=== PATIENT | male | born 1995 | race Caucasian/White ===

== ENCOUNTER 2017-07-20 15:07 | Emergency (ER) | payer OTHER ==
[~2017-07-20] VITALS: Ht 198.1 cm; Wt 87.8 kg
[2017-07-20 15:09] VITALS: TEMP 36.3; Ht 198.1 cm; Wt 87.8 kg
--- NOTE | 2017-07-20 15:33 | EMERGENCY ROOM VISIT NOTE ---
History First contact with patient: 15:19 Chief Complaint: OTHER COMPLAINT Stated Complaint: INFECTION ON LEG, EAR, CHIN History of Present Illness The patient is a 22 year old male who presents to the Emergency Room with complaints of. Wednesday night relapsed and took Bath Salts. Face and chin lesions since Wednesday. 1.5 weeks of lesions on his legs progressing. Takes Subutex every day. Dosed 0.25 today. 4 years. From [age] years old IVDU with heroin, bath salts and speed. Injected in right antebubital fossa. Past Medical/Surgical History Medical Problems: (1) Drug abuse Social History Smoking Status: Current Every Day Smoker Housing Status: lives with family Current/Historical Medications Scheduled Buprenorphine Hcl-Naloxone Hcl (Suboxone 8-2 Mg), 1 TAB PO UD Cephalexin Monohydrate (Keflex), 1 CAP PO BID Clonidine Hcl (Catapres), 1 TAB PO BID Sulfa/Trimethoprim (Bactrim Ds 800MG/160MG), 1 TAB PO BID Physical Exam Vital Signs Date Time Temp Pulse Resp B/P (MAP) Pulse Ox O2 Delivery O2 Flow Rate FiO2 07/20/17 18:10 88 16 118/76 98 07/20/17 16:59 72 16 140/81 98 Room Air 07/20/17 15:09 36.3 98 20 136/78 96 Room Air Medical Decision & Procedures Laboratory Results 07/20/17 15:51 Red Blood Count 4.73, Mean Corpuscular Volume 90.3, Mean Corpuscular Hemoglobin 31.3, Mean Corpuscular Hemoglobin Concent 34.7, Mean Platelet Volume 9.1, Neutrophils (%) (Auto) 44.6, Lymphocytes (%) (Auto) 43.5, Monocytes (%) (Auto) 9.3, Eosinophils (%) (Auto) 2.0, Basophils (%) (Auto) 0.6, Neutrophils # (Auto) 2.25, Lymphocytes # (Auto) 2.19, Monocytes # (Auto) 0.47, Eosinophils # (Auto) 0.10, Basophils # (Auto) 0.03 07/20/17 15:51 Test 07/20/17 15:51 White Blood Count 5.04 K/uL (4.8-10.8) Red Blood Count 4.73 M/uL (4.7-6.1) Hemoglobin 14.8 g/dL (14.0-18.0) Hematocrit 42.7 % (42-52) Mean Corpuscular Volume 90.3 fL (80-100) Mean Corpuscular Hemoglobin 31.3 pg (25-34) Mean Corpuscular Hemoglobin Concent 34.7 g/dl (32-36) Platelet Count 150 K/uL (130-400) Mean Platelet Volume 9.1 fL (7.4-10.4) Neutrophils (%) (Auto) 44.6 % Lymphocytes (%) (Auto) 43.5 % Monocytes (%) (Auto) 9.3 % Eosinophils (%) (Auto) 2.0 % Basophils (%) (Auto) 0.6 % Neutrophils # (Auto) 2.25 K/uL (1.4-6.5) Lymphocytes # (Auto) 2.19 K/uL (1.2-3.4) Monocytes # (Auto) 0.47 K/uL (0.11-0.59) Eosinophils # (Auto) 0.10 K/uL (0-0.5) Basophils # (Auto) 0.03 K/uL (0-0.2) RDW Standard Deviation 43.2 fL (36.4-46.3) RDW Coefficient of Variation 13.1 % (11.5-14.5) Immature Granulocyte % (Auto) 0.0 % Immature Granulocyte # (Auto) 0.00 K/uL (0.00-0.02) Erythrocyte Sedimentation Rate 16 mm/hr (0-14) Anion Gap 5.0 mmol/L (3-11) Est Creatinine Clear Calc Drug Dose 185.3 ml/min Estimated GFR () 148.2 Estimated GFR (Non- 127.9 BUN/Creatinine Ratio 8.8 (10-20) Calcium Level 9.2 mg/dl (8.5-10.1) Total Bilirubin 0.6 mg/dl (0.2-1) Aspartate Amino Transf (AST/SGOT) 22 U/L (15-37) Alanine Aminotransferase (ALT/SGPT) 18 U/L (12-78) Alkaline Phosphatase 80 U/L (45-117) Troponin I < 0.015 ng/ml (0-0.045) Total Protein 8.4 gm/dl (6.4-8.2) Albumin 4.0 gm/dl (3.4-5.0) Globulin 4.4 gm/dl (2.5-4.0) Albumin/Globulin Ratio 0.9 (0.9-2) Medications Administered Medications (Trade) Dose Ordered Sig/Jennifer Route Start Time Stop Time Status Last Admin Dose Admin Trimethoprim/ Sulfamethoxazole (Septra Ds 800/ 160MG Tab) 1 tab NOW ONCE PO 07/20/17 16:15 07/20/17 16:16 DC 07/20/17 16:58 1 TAB Cephalexin Monohydrate (Keflex Cap) 500 mg NOW ONCE PO 07/20/17 16:15 07/20/17 16:16 DC 07/20/17 16:58 500 MG Clonidine HCl (Catapres Tab) 0.1 mg NOW ONCE PO 07/20/17 16:15 07/20/17 16:16 DC 07/20/17 16:15 0.1 MG Medication Reconcilliation Current Medication List: was personally reviewed by me Blood Pressure Screening Patient's blood pressure: Elevated blood pressure Blood pressure disposition: Elevated BP felt to be situational, Referred to PCP Impression Primary Impression: Cellulitis Departure Information Dispostion Home / Self-Care Condition GOOD Prescriptions Clonidine Hcl (CATAPRES) 0.1 Mg Tab 1 TAB PO BID for 5 Days, #10 TAB 1 Refill Prov: Kobi Lee MD 07/20/17 Cephalexin Monohydrate (Keflex) 500 Mg Cap 1 CAP PO BID for 7 Days, #14 CAP Prov: Kobi Lee MD 07/20/17 Sulfa/Trimethoprim (Bactrim Ds 800MG/160MG) Tab 1 TAB PO BID for 7 Days, #6 TAB Prov: Kobi Lee MD 07/20/17 Referrals No Doctor, Assigned (PCP) Patient Instructions My [facility] Additional Instructions You were treated for opiate withdrawal with clonidine in addition to cellulitis. Take this twice a day as necessary for withdrawal symptoms. This medication can reduce your blood pressure and make you more prone to faint. Do not take if driving, operating heavy equipment, feeling dizzy or climbing up ladders. CELLULITIS INSTRUCTIONS: Cephalexin(Keflex) 500mg: Take one pill two times daily for 7 days for your skin infection. All antibiotics can cause diarrhea. If this occurs and you feel worse or it does not resolve in 1-2 days follow up with your doctor or return to the Emergency Department as this could be signs of serious underlying problems. Any medication can cause an allergic reaction, stop the pills immediately and return to the ER for rash, hives, breathing difficulties, or swelling. Trimethoprim-Sulfamethoxazole(Bactrim DS): Take one pill twice daily for 7 days for your skin infection. All antibiotics can cause diarrhea. If this occurs and you feel worse or it does not resolve in 1-2 days follow up with your doctor or return to the Emergency Department as this could be signs of serious underlying problems. Any medication can cause an allergic reaction, stop the pills immediately and return to the ER for rash, hives, breathing difficulties, or swelling. Acetaminophen(Tylenol) may be used for fever or pain. Use 1000mg every eight hours as needed. Avoid using more than 3000mg in a 24 hour period. This is available over the counter. Read all the package inserts or medication information paperwork provided. If you have any questions or concerns call your primary provider, pharmacist or the ER for assistance. Rest and drink plenty of fluids. Continue current medications. Return to the ER for severe pain, persistent fevers, spreading redness, or any worsening of your condition. Follow up with your primary physician within 2-3 days for a recheck of the current condition. Problem Qualifiers Primary Impression: Cellulitis Site of cellulitis: extremity Site of cellulitis of extremity: lower extremity Laterality: right Qualified Codes: L03.115 - Cellulitis of right lower limb
[2017-07-20 16:04] LABS: BASO % 0.6 %; BASO ABS # 0.03 K/uL (0-0.2); COMPLETE YES; HEMATOCRIT 42.7 % (42-52); LYMPH % 43.5 %; LYMPH ABS # 2.19 K/uL (1.2-3.4); MEAN CELL VOLUME 90.3 fL (80-100); MEAN CORPUSCULAR HEMOGLOBIN 31.3 pg (25-34); MEAN CORPUSCULAR HGB CONC 34.7 g/dl (32-36); MEAN PLATELET VOLUME 9.1 fL (7.4-10.4); MONO % 9.3 %; NEUT % 44.6 %; PLATELET COUNT 150 K/uL (130-400); RED BLOOD COUNT 4.73 M/uL (4.7-6.1); WHITE BLOOD COUNT 5.04 K/uL (4.8-10.8)
[2017-07-20] MEDS ORDERED: CEPHALEXIN MONOHYDRATE 250 MG CAP PO ONE (16:15)
[2017-07-20] MEDS ORDERED: CLONIDINE HCL 0.1 MG TAB PO ONE (16:15)
[2017-07-20] MEDS ORDERED: SULFAMETHOXAZOLE/TRIMETHOPRIM DS 800/160MG TAB PO ONE (16:15)
[2017-07-20] MEDS ORDERED: BUPR1SUB23 PO (16:16)
[2017-07-20 16:21] LABS: BUN/CREATININE RATIO 8.8 (10-20); CALCIUM 9.2 mg/dl (8.5-10.1); CREATININE 0.77 mg/dl (0.60-1.40); POTASSIUM 3.5 mmol/L (3.5-5.1)
[2017-07-20 16:24] LABS: ALB/GLOB RATIO 0.9 (0.9-2)
[2017-07-20] MEDS ORDERED: CLON0.1T12 PO (17:53)
[2017-07-20] MEDS ORDERED: CEPH500C PO (17:53)
[2017-07-20] MEDS ORDERED: SULF800T23 PO (17:53)
[2017-07-20 18:10] VITALS: BP 118/76; PULSE 88; O2SAT 98
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
== END 2017-07-20 18:12 | disposition home or self-care (01) ==
LOC: C.EDB 15:08 → C.EDC 18:12
DX: L03.115 Cellulitis of right lower limb (principal); F19.90 Other psychoactive substance use, unspecified, uncomplicated; F17.200 Nicotine dependence, unspecified, uncomplicated; Z82.49 Family history of ischemic heart disease and other diseases of the circulatory system

== ENCOUNTER 2021-09-13 13:05 | Inpatient (IN) ==
--- NOTE | 2021-09-13 13:08 | Emergency Department Note ---
Impression & Plan COVID-19 virus infection, Schizoaffective disorder, History of seizure, Suicidal ideation ED Provider Note NAME: VAN PARKS AGE: 26 SEX: M : 1995 ARRIVES VIA: Ambulance INFORMANT: Patient, ED PROVIDER(S): Usama Sotelo MD Chief Complaint: Weakness, cough, decreased appetite HPI: Patient presents due to concern for increasing weakness productive cough. Patient does have a remote history of asthma but does not have an inhaler. The patient had been trying cough and cold medication but without significant improvement in symptoms. Patient dates his symptoms been fairly constant progressively worse over the last 5 to 6 days. Patient states that he believes he was Covid tested on Wednesday but did not receive a result. Patient denies any fevers or chills. Patient has any chest pains or shortness of breath. Patient is a decreased appetite not eating or drinking as much and has had darker colored urine. Patient denies any nausea or vomiting. Patient denies any diarrhea. Vaccinated for COVID-19. Patient is not vaccinated for the flu. Patient denies any recent surgeries or travel. Patient denies any prior history of DVT or PE and denies any lower extremity swelling. Patient had been on Suboxone in the past for history of opiate abuse but states he has not used in some time ROS: See HPI for pertinent positives and negatives. A total of 10 systems were reviewed and otherwise negative. Past medical history: See below Surgical history: See below Social history: See below Physical Exam: GENERAL: NAD, wearing a mask, non-toxic. EYE EXAM: Normal conjunctiva. PERRL, no anisocoria and EOM's grossly intact w/o pain. NECK: Supple, no nuchal rigidity, no adenopathy, non-tender. No signs of meningismus. LUNGS: Slight expiratory wheezing in the right chest. Normal chest wall mechan ics. HEART: NSR, no MRG. ABDOMEN: Abdomen soft, non-tender, normo-active bowel sounds, no masses, no rebound or guarding. BACK: No CVA TTP. SKIN: No rashes and no bruising. UPPER EXTREMITIES: Upper extremities are grossly normal. LOWER EXTREMITIES: Grossly normal, no edema. Negative Homans' sign bilaterally NEURO EXAM: A&O x3, cranial nerves II-XII grossly intact, normal speech, moves all 4 extremities on command w/o issue. Psych after initial physical exam: Positive SI with auditory hallucinations command in nature, negative HI. Differential diagnoses: Infection, dehydration, metabolic abnormality, hypo/hyperglycemia, electrolyte disturbance, anemia, hypoxia, cardiac sources, intracerebral event, toxicologic, neurologic, as well as other pathologies. Course: Patient was seen and evaluated the bedside. Full history physical exam was performed. EKG interpreted by me Normal sinus rhythm, rate of 67, normal intervals, normal axis, T wave version aVL but not in contiguous leads. Patient does have mild elevation inferiorly and laterally but without any concavity. Likely consistent with benign early repole. Imaging Studies: See Below Cardiac monitoring: An order was placed for continuous cardiac monitoring. The monitor shows a rate of 72 with sinus rhythm. MDM: Patient presents due to concern for weakness fatigue and productive cough. Patient did have remote history of asthma and this was treated as such as the patient did have a little bit of wheezing in the right chest. Blood work was obtained along with an EKG troponin chest x-ray. Chest x-ray is unremarkable with exception of possible foreign body. When asked the patient denies any surgery procedure placing anything under the skin inhaling or swallowing anything. CT of the chest was ordered. Patient is Covid positive and then relayed to case management the patient was having auditory hallucinations that were command in nature telling him to kill himself either by overdosing on heroin, crashing his vehicle or slitting his wrist. Given this concern would be difficult to place him for inpatient psych treatment given his Covid status. I did speak the on-call hospitalist and the patient was admitted by Dr. Gillette to the medicine service with a psychiatric consult. CT of the chest no longer saw any foreign body. This was likely external to the patient. Past Med/Surg History Medical History Asthma Mandible fracture Polysubstance abuse Schizoaffective disorder Seizure h/o seizures - not on meds Surgical History History of mandibular surgery Family History Denies family history of Mental health disorder Social History Smoking Status: Current every day smoker Tobacco Type: Cigarettes Age Started Using Tobacco: 14; packs per day: 1; Second Hand Exposure: Yes; Do You Dip or Chew Tobacco: Yes; Tobacco Cessation Education Requested by Patient: Yes Hx Alcohol Use: Yes Alcohol type: hard liquor Hx Substance Use: Yes Non-Prescribed Medications: Methamphetamines Last Used Substance: Days (ago) Preferred Language: Hungarian Communication Ability: Effective [employer] Required: No Beliefs That Will Affect Care: None marital status: Single Current Living Situation: Alone current occupational status: unemployed other: lives in [place] Feels Safe at Home: Yes Safety Concerns: Feels Safe At This Time Immunizations: Vaccinated for covid, not flu Allergies Allergies Allergy/AdvReac Type Severity Reaction Status Date / Time Fish Containing Products Allergy Intermediate Hives Verified 09/13/21 17:57 hydroxyzine Allergy Intermediate ITCH Verified 09/13/21 17:57 Penicillins Allergy Intermediate Hives Verified 09/13/21 17:57 walnut Allergy Intermediate trouble Verified 09/13/21 17:57 breathing, hives Home Meds Home Medications Medication Instructions Recorded Confirmed No Known Home Medications 09/13/21 09/13/21 Results & Data (ED) Vital Signs Vital Signs - 24 hr 09/13/21 13:48 Temperature 36.7 C Temperature Source Oral Pulse Rate 74 Respiratory Rate 21 Respiratory Effort / Characteristics Non-Labored Blood Pressure 116/70 Blood Pressure Mean 85 Pulse Oximetry 100 Oxygen Delivery Method Room Air Sepsis Recent Fever Within 48 Hours No Sepsis New/Unexplained Change in Mental Status N/A Sepsis Action Taken by Nursing No Action Required Home Medications Current Medication List: was personally reviewed by me Laboratory Data Attestation: I reviewed the patient's lab results. Result diagrams: 09/13/21 14:16 09/13/21 14:16 Lab Results 09/13/21 09/13/21 09/13/21 Range/Units 13:44 13:44 14:16 WBC 5.61 (4.8-10.8) K/uL RBC 4.49 L (4.7-6.1) M/uL Hgb 14.1 (14.0-18.0) g/dL Hct 42.1 (42-52) % MCV 93.8 (80-100) fL MCH 31.4 (25-34) pg MCHC 33.5 (32-36) g/dL RDW Std Deviation 44.2 (36.4-46.3) fL RDW Coeff of Prudence 12.8 (11.5-14.5) % Plt Count 155 (130-400) K/uL MPV 9.6 (7.4-10.4) fL Immature Gran % (Auto) 0.2 % Neut % (Auto) 51.8 % Lymph % (Auto) 39.6 % [place] % (Auto) 5.9 % Eos % (Auto) 2.1 % Baso % (Auto) 0.4 % Neut # (Auto) 2.91 (1.4-6.5) K/uL Lymph # (Auto) 2.22 (1.2-3.4) K/uL [place] # (Auto) 0.33 (0.11-0.59) K/uL Eos # (Auto) 0.12 (0-0.5) K/uL Baso # (Auto) 0.02 (0-0.2) K/uL Immature Gran # (Auto) 0.01 (0.00-0.02) K/uL ESR (0-15) mm/hr Sodium (136-145) mmol/L Potassium (3.5-5.1) mmol/L Chloride (98-107) mmol/L Carbon Dioxide (21-32) mmol/L Anion Gap (3-11) BUN (6-23) mg/dl Creatinine (0.6-1.4) mg/dl Est Cr Clr Drug Dosing ml/min Est GFR ( Amer) ml/min Est GFR (Non-Af Amer) ml/min BUN/Creatinine Ratio (10-20) Glucose (70-99(Fasting)) mg/dl Calcium (8.5-10.1) mg/dl Magnesium (1.7-2.4) mg/dl Total Creatine Kinase (30-223) U/L Troponin I (0-0.04) ng/ml C-Reactive Protein (0-0.5) mg/dl Salicylates (3.0-30) mg/dl Urine Opiates Screen (Neg) Ur Methadone, Qual (Neg) Acetaminophen (10-30) ug/ml Urine Barbiturates (Neg) Ur Phencyclidine (PCP) (Neg) U Amphetamin/Meth Scrn (Neg) MDMA (Ecstasy) Screen (Neg) U Benzodiazepines Scrn (Neg) Ur Cocaine Metabolite (Neg) U Marijuana (THC) Screen (Neg) Ethyl Alcohol mg/dL (<10.0) mg/dl Influ A Molecular Assay Negative (Negative) Influ B Molecular Assay Negative (Negative) SARS-CoV-2, RNA, NAAT POSITIVE A* (NEGATIVE) 09/13/21 09/13/21 09/13/21 Range/Units 14:16 14:16 14:16 WBC (4.8-10.8) K/uL RBC (4.7-6.1) M/uL Hgb (14.0-18.0) g/dL Hct (42-52) % MCV (80-100) fL MCH (25-34) pg MCHC (32-36) g/dL RDW Std Deviation (36.4-46.3) fL RDW Coeff of Prudence (11.5-14.5) % Plt Count (130-400) K/uL MPV (7.4-10.4) fL Immature Gran % (Auto) % Neut % (Auto) % Lymph % (Auto) % [place] % (Auto) % Eos % (Auto) % Baso % (Auto) % Neut # (Auto) (1.4-6.5) K/uL Lymph # (Auto) (1.2-3.4) K/uL [place] # (Auto) (0.11-0.59) K/uL Eos # (Auto) (0-0.5) K/uL Baso # (Auto) (0-0.2) K/uL Immature Gran # (Auto) (0.00-0.02) K/uL ESR 14 (0-15) mm/hr Sodium 142 (136-145) mmol/L Potassium 4.2 (3.5-5.1) mmol/L Chloride 108 H (98-107) mmol/L Carbon Dioxide 27 (21-32) mmol/L Anion Gap 7 (3-11) BUN 7 (6-23) mg/dl Creatinine 0.55 L (0.6-1.4) mg/dl Est Cr Clr Drug Dosing 255.7 ml/min Est GFR ( Amer) > 150.0 ml/min Est GFR (Non-Af Amer) 142.8 ml/min BUN/Creatinine Ratio 12.7 (10-20) Glucose 102 H (70-99(Fasting)) mg/dl Calcium 8.5 (8.5-10.1) mg/dl Magnesium 1.9 (1.7-2.4) mg/dl Total Creatine Kinase 58 (30-223) U/L Troponin I < 0.03 (0-0.04) ng/ml C-Reactive Protein < 0.50 (0-0.5) mg/dl Salicylates (3.0-30) mg/dl Urine Opiates Screen (Neg) Ur Methadone, Qual (Neg) Acetaminophen (10-30) ug/ml Urine Barbiturates (Neg) Ur Phencyclidine (PCP) (Neg) U Amphetamin/Meth Scrn (Neg) MDMA (Ecstasy) Screen (Neg) U Benzodiazepines Scrn (Neg) Ur Cocaine Metabolite (Neg) U Marijuana (THC) Screen (Neg) Ethyl Alcohol mg/dL (<10.0) mg/dl Influ A Molecular Assay (Negative) Influ B Molecular Assay (Negative) SARS-CoV-2, RNA, NAAT (NEGATIVE) 09/13/21 09/13/21 09/13/21 Range/Units 14:58 15:18 15:18 WBC (4.8-10.8) K/uL RBC (4.7-6.1) M/uL Hgb (14.0-18.0) g/dL Hct (42-52) % MCV (80-100) fL MCH (25-34) pg MCHC (32-36) g/dL RDW Std Deviation (36.4-46.3) fL RDW Coeff of Prudence (11.5-14.5) % Plt Count (130-400) K/uL MPV (7.4-10.4) fL Immature Gran % (Auto) % Neut % (Auto) % Lymph % (Auto) % [place] % (Auto) % Eos % (Auto) % Baso % (Auto) % Neut # (Auto) (1.4-6.5) K/uL Lymph # (Auto) (1.2-3.4) K/uL [place] # (Auto) (0.11-0.59) K/uL Eos # (Auto) (0-0.5) K/uL Baso # (Auto) (0-0.2) K/uL Immature Gran # (Auto) (0.00-0.02) K/uL ESR (0-15) mm/hr Sodium (136-145) mmol/L Potassium (3.5-5.1) mmol/L Chloride (98-107) mmol/L Carbon Dioxide (21-32) mmol/L Anion Gap (3-11) BUN (6-23) mg/dl Creatinine (0.6-1.4) mg/dl Est Cr Clr Drug Dosing ml/min Est GFR ( Amer) ml/min Est GFR (Non-Af Amer) ml/min BUN/Creatinine Ratio (10-20) Glucose (70-99(Fasting)) mg/dl Calcium (8.5-10.1) mg/dl Magnesium (1.7-2.4) mg/dl Total Creatine Kinase (30-223) U/L Troponin I (0-0.04) ng/ml C-Reactive Protein (0-0.5) mg/dl Salicylates < 3.0 L (3.0-30) mg/dl Urine Opiates Screen Neg (Neg) Ur Methadone, Qual Neg (Neg) Acetaminophen 8 L (10-30) ug/ml Urine Barbiturates Neg (Neg) Ur Phencyclidine (PCP) Neg (Neg) U Amphetamin/Meth Scrn Pos H (Neg) MDMA (Ecstasy) Screen Neg (Neg) U Benzodiazepines Scrn Neg (Neg) Ur Cocaine Metabolite Neg (Neg) U Marijuana (THC) Screen Pos H (Neg) Ethyl Alcohol mg/dL < 10.0 (<10.0) mg/dl Influ A Molecular Assay (Negative) Influ B Molecular Assay (Negative) SARS-CoV-2, RNA, NAAT (NEGATIVE) Administered Medications Discontinued Medications Acetaminophen (Acetaminophen 500 Mg Tab) 1,000 mg PO NOW STA Stop: 09/13/21 13:13 Last Admin: 09/13/21 13:36 Dose: 1,000 mg Documented by: [id number] Albuterol (Albuterol Hfa 8 Gm Inhaler) 2 puffs INH NOW ONE Stop: 09/13/21 13:13 Last Admin: 09/13/21 13:37 Dose: 2 puffs Documented by: [id number] Sodium Chloride (Nss 1000ml) 1,000 mls @ 999 mls/hr IV .Q1H1M LILIA Stop: 09/13/21 14:15 Last Infusion: 09/13/21 14:40 Dose: 0 mls/hr Documented by: [id number] Admin: 09/13/21 13:39 Dose: 999 mls/hr Documented by: [id number] Ioversol (Optiray 320 100ml) 94 ml IV ONCE ONE Stop: 09/13/21 16:49 Last Admin: 09/13/21 16:48 Dose: 94 ml Documented by: [id number] Ketorolac Tromethamine (Ketorolac Tromethamine 15 Mg/Ml Vial) 10 mg IV NOW ONE Stop: 09/13/21 13:13 Last Admin: 09/13/21 13:41 Dose: 10 mg Documented by: [id number] Methylprednisolone (Methylprednisolone 125 Mg/2 Ml Vial) 60 mg IV NOW STA Stop: 09/13/21 13:13 Last Admin: 09/13/21 13:40 Dose: 60 mg Documented by: [id number] Ondansetron HCl (Ondansetron Inj 2 Mg/Ml 2 Ml Vial) 4 mg IV NOW STA Stop: 09/13/21 13:13 Last Admin: 09/13/21 13:39 Dose: 4 mg Documented by: [id number] Imaging Data Radiologist's Impression: Chest X-Ray 09/13/21 13:12 SINGLE VIEW CHEST CLINICAL HISTORY: Generalized weakness. FINDINGS: 2 AP, portable, upright chest radiographs are obtained. No prior studies are available for comparison at the time of dictation. The cardiomediastinal silhouette is unremarkable. The lungs and pleural spaces are clear. No pneumothorax is seen. The bony thorax is grossly intact. An indeterminant curvilinear metallic density/foreign body projects over the right mediastinum. IMPRESSION: 1. No active disease in the chest. 2. An indeterminant curvilinear metallic density/foreign body projects over the right mediastinum. ACT 112: Negative or not required by law. Electronically signed by: Femi Emmanuel M.D. 09/13/2021 1:[address] 09/13/21 15:57 CT SCAN OF THE CHEST WITH IV CONTRAST CLINICAL HISTORY: Covid. Metallic foreign body. COMPARISON STUDY: Chest x-ray dated 09/13/2021. TECHNIQUE: Following the IV administration of 94 cc of Optiray 320, CT scan of the thorax was performed from the thoracic inlet to the upper abdomen. Images are reviewed in the axial, sagittal, and coronal planes. IV contrast was administered without complication. A dose lowering technique was utilized adhering to the principles of ALARA. CT DOSE: 239.75 mGy.cm FINDINGS: Thyroid: Imaged portions of the thyroid gland are normal in size and attenuation. Thoracic aorta: The thoracic aorta is normal in caliber and demonstrates standard 3-vessel arch anatomy. No dissection is seen. Pulmonary vasculature: The pulmonary trunk is normal in caliber. There are no filling defects identified in the central pulmonary vessels to indicate pulmonary embolus. Note that this examination was not protocoled for evaluation of the pulmonary arteries. Heart: The heart is normal in size and without pericardial effusion. Lungs and pleural spaces: The lungs and pleural spaces are clear. The trachea and central airways are patent. Mediastinum: There is no mediastinal lymphadenopathy. [place] Delia: Clear. Axillae: There is no axillary lymphadenopathy. Upper abdomen: Partially visualized upper abdominal viscera is within normal limits. Skeletal structures: No lytic or blastic bony lesions are seen. IMPRESSION: 1. The lungs are clear. 2. The curvilinear metallic density seen by chest x-ray was not visualized on CT and may have been external to the patient. Clinical correlation will be essential. If further workup is desired then PA and lateral chest radiographs could be considered. ACT 112: Negative or not required by law. Electronically signed by: Femi Emmanuel M.D. 09/13/2021 5:02 PM Discharge Plan Visit Data Chief Complaint: Illness Stated Complaint: illness, possible covid ED Provider: Usama Sotelo Discharge Problem: COVID-19 virus infection, Schizoaffective disorder, History of seizure, Suicidal ideation
[2021-09-13] MEDS ORDERED: ALBUTEROL HFA 8 GM INHALER INH ONE (13:12)
[2021-09-13] MEDS ORDERED: ONDANSETRON INJ 2 MG/ML 2 ML VIAL IV STA (13:12)
[2021-09-13] MEDS ORDERED: methylPREDNISolone 125 MG/2 ML VIAL IV STA (13:12)
[2021-09-13] MEDS ORDERED: ACETAMINOPHEN 500 MG TAB PO STA (13:12)
[2021-09-13] MEDS ORDERED: KETOROLAC TROMETHAMINE 15 MG/ML VIAL IV ONE (13:12)
[2021-09-13] MEDS ORDERED: SODIUM CHLORIDE 0.9% 1000ML 1,000 ML IV SCH (13:15)
--- NOTE | 2021-09-13 13:54 | XRay Report ---
SINGLE VIEW CHEST CLINICAL HISTORY: Generalized weakness. FINDINGS: 2 AP, portable, upright chest radiographs are obtained. No prior studies are available for comparison at the time of dictation. The cardiomediastinal silhouette is unremarkable. The lungs and pleural spaces are clear. No pneumothorax is seen. The bony thorax is grossly intact. An indetermina nt curvilinear metallic density/foreign body projects over the right mediastinum. IMPRESSION: 1. No active disease in the chest. 2. An indeterminant curvilinear metallic density/foreign body projects over the right mediastinum. ACT 112: Negative or not required by law. Electronically signed by: Femi Emmanuel M.D. 09/13/2021 1:53 PM
[2021-09-13 14:14] LABS: Influenza A virus by PCR Negative (Negative); Influenza B virus by PCR Negative (Negative)
[2021-09-13 14:26] LABS: Basophils # (auto) 0.02 K/uL (0-0.2); Basophils % (auto) 0.4 %; Eosinophils # (auto) 0.12 K/uL (0-0.5); Eosinophils % (auto) 2.1 %; Hematocrit (blood only) 42.1 % (42-52); Hemoglobin 14.1 g/dL (14.0-18.0); Immature Granulocytes # (auto) 0.01 K/uL (0.00-0.02); Immature Granulocytes % (auto) 0.2 %; Lymphocytes # (auto) 2.22 K/uL (1.2-3.4); Lymphocytes % (auto) 39.6 %; Mean Corpuscular Hemoglobin 31.4 pg (25-34); Mean Corpuscular Hgb Conc 33.5 g/dL (32-36); Mean Corpuscular Volume 93.8 fL (80-100); Mean Platelet Volume 9.6 fL (7.4-10.4); Monocytes # (auto) 0.33 K/uL (0.11-0.59); Monocytes % (auto) 5.9 %; Neutrophils # (auto) 2.91 K/uL (1.4-6.5); Neutrophils % (auto) 51.8 %; Platelet Count 155 K/uL (130-400); RDW Coefficient of Variation 12.8 % (11.5-14.5); RDW Standard Deviation 44.2 fL (36.4-46.3); Red Blood Count 4.49 M/uL (4.7-6.1); White Blood Count 5.61 K/uL (4.8-10.8)
[2021-09-13 15:01] LABS: Troponin I < 0.03 ng/ml (0-0.04)
[2021-09-13 15:22] LABS: Anion Gap 7 (3-11); BUN Creatinine Ratio 12.7 (10-20); Blood Urea Nitrogen 7 mg/dl (6-23); Calcium 8.5 mg/dl (8.5-10.1); Carbon Dioxide 27 mmol/L (21-32); Chloride 108 mmol/L (98-107); Creatinine Clr Calc Pharmacy 255.7 ml/min; Est GFR (African American) > 150.0 ml/min; Est GFR (Non-African American) 142.8 ml/min; Glucose 102 mg/dl (70-99(Fasting)); Potassium 4.2 mmol/L (3.5-5.1); Sodium 142 mmol/L (136-145)
[2021-09-13 15:58] LABS: Acetaminophen 8 ug/ml (10-30); Salicylate < 3.0 mg/dl (3.0-30)
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
[2021-09-13 16:17] LABS: Amphetamines+Metham, Urine Pos (Neg); Barbiturates, Urine Neg (Neg); Benzodiazepine, Urine Neg (Neg); Cocaine, Urine Neg (Neg); MDMA (Ecstacy), Urine Neg (Neg); Methadone, Urine Neg (Neg); Opiate, Urine Neg (Neg); Phencyclidine, Urine Neg (Neg)
[2021-09-13] MEDS ORDERED: OPTIRAY 320 100ml IV ONE (16:48)
--- NOTE | 2021-09-13 17:04 | CT Scan Report ---
CT SCAN OF THE CHEST WITH IV CONTRAST CLINICAL HISTORY: Covid. Metallic foreign body. COMPARISON STUDY: Chest x-ray dated 09/13/2021. TECHNIQUE: Following the IV administration of 94 cc of Optiray 320, CT scan of the thorax was perform ed from the thoracic inlet to the upper abdomen. Images are reviewed in the axial, sagittal, and calixto nal planes. IV contrast was administered without complication. A dose lowering technique was utilize d adhering to the principles of ALARA. CT DOSE: 239.75 mGy.cm FINDINGS: Thyroid: Imaged portions of the thyroid gland are normal in size and attenuation. Thoracic aorta: The thoracic aorta is normal in caliber and demonstrates standard 3-vessel arch anato my. No dissection is seen. Pulmonary vasculature: The pulmonary trunk is normal in caliber. There are no filling defects identif ied in the central pulmonary vessels to indicate pulmonary embolus. Note that this examination was no t protocoled for evaluation of the pulmonary arteries. Heart: The heart is normal in size and without pericardial effusion. Lungs and pleural spaces: The lungs and pleural spaces are clear. The trachea and central airways are patent. Mediastinum: There is no mediastinal lymphadenopathy. Alma Delia: Clear. Axillae: There is no axillary lymphadenopathy. Upper abdomen: Partially visualized upper abdominal viscera is within normal limits. Skeletal structures: No lytic or blastic bony lesions are seen. IMPRESSION: 1. The lungs are clear. 2. The curvilinear metallic density seen by chest x-ray was not visualized on CT and may have been ex ternal to the patient. Clinical correlation will be essential. If further workup is desired then PA a nd lateral chest radiographs could be considered. ACT 112: Negative or not required by law. Electronically signed by: Femi Emmanuel M.D. 09/13/2021 5:02 PM
[2021-09-13 17:28] LABS: C Reactive Protein < 0.50 mg/dl (0-0.5); Creatine Kinase 58 U/L (30-223); Magnesium 1.9 mg/dl (1.7-2.4)
[2021-09-13] MEDS ORDERED: ALBUTEROL HFA 8 GM INHALER INH PRN (18:24)
[2021-09-13] MEDS ORDERED: ONDANSETRON INJ 2 MG/ML 2 ML VIAL IV PRN (18:24)
[2021-09-13] MEDS ORDERED: ACETAMINOPHEN 325 MG TAB PO PRN (18:24)
[2021-09-13] MEDS: SODIUM CHLORIDE 0.9% 1000ML 1,000 ML IV SCH (18:43)
[2021-09-13] MEDS: guaiFENesin 600 MG TABCR PO SCH (19:47)
[2021-09-13] MEDS: THIAMINE HCL 100 MG TAB PO SCH (19:48)
[2021-09-13] MEDS: NICOTINE 21 MG/24 HR TDSY TD SCH (19:48)
[2021-09-13] MEDS: FOLIC ACID 1 MG TAB PO SCH (19:48)
[2021-09-13] MEDS ORDERED: OLANZapine 10 MG TAB PO PRN (21:50)
[2021-09-14] MEDS: SODIUM CHLORIDE 0.9% 1000ML 1,000 ML IV SCH (04:42)
[2021-09-14 07:08] LABS: Anion Gap 5 (3-11); BUN Creatinine Ratio 19.1 (10-20); Blood Urea Nitrogen 9 mg/dl (6-23); Calcium 8.6 mg/dl (8.5-10.1); Carbon Dioxide 26 mmol/L (21-32); Chloride 110 mmol/L (98-107); Creatinine Clr Calc Pharmacy 297.9 ml/min; Est GFR (African American) > 150.0 ml/min; Est GFR (Non-African American) > 150.0 ml/min; Glucose 99 mg/dl (70-99(Fasting)); Iron 134 mcg/dl (35-175); Sodium 141 mmol/L (136-145); Total Iron Binding Cap Calc 259 mcg/dl (250-450); Transferrin (FE) Percent Satur 52 % (20-50); Unsaturated Iron Binding Cap 125 mcg/dl (155-355)
[2021-09-14 07:17] LABS: Thyroid Stimulating Hormone 0.087 uIu/ml (0.300-4.500)
[2021-09-14 07:21] LABS: Ferritin 148.3 ng/ml (8-388)
[2021-09-14 07:27] LABS: Folate (Folic Acid) 11.24 ng/ml (>5.38)
[2021-09-14 07:49] LABS: T4 Free Thyroxine 0.83 ng/dl (0.61-1.60)
[2021-09-14] MEDS: THIAMINE HCL 100 MG TAB PO SCH ×2 (07:49→20:13)
[2021-09-14] MEDS: guaiFENesin 600 MG TABCR PO SCH ×2 (07:50→20:07)
[2021-09-14] MEDS: NICOTINE 21 MG/24 HR TDSY TD SCH (07:50)
[2021-09-14] MEDS: CEROVITE ADV FORMULA TAB PO SCH (07:50)
[2021-09-14] MEDS: FOLIC ACID 1 MG TAB PO SCH (07:50)
[2021-09-14] MEDS: ENOXAPARIN INJ 40 MG/0.4 ML SYR SQ SCH (07:50)
--- NOTE | 2021-09-14 09:18 | Electrocardiogram Report ---
Test Reason : Blood Pressure : / mmHG Vent. Rate : 067 BPM Atrial Rate : 067 BPM P-R Int : 192 ms QRS Dur : 092 ms QT Int : 388 ms P-R-T Axes : 073 078 072 degrees QTc Int : 409 ms Normal sinus rhythm Diffuse Minor ST elevation, most consistent with repolarization variant Normal ECG When compared with ECG of 20-JUL-2017 17:07, No significant change was found Confirmed by Mauri Wilson ([id number]) on 09/14/2021 9:18:34 AM Referred By: Confirmed By:Mauri Wilson
--- NOTE | 2021-09-14 09:26 | Psychiatric Consultation ---
Date of Consultation September 14, 2021 Impression / Recommendations Impression This is a 26 yo with a history of schizoaffective disorder, polysubstance use admitted medically. Diagnostically consistent with unspecified depression-likely combination of MDD and methamphetamine and opioid withdrawal as well as unpsceified psychosis-likely combination of schizoaffective disorder with recent medication non-adherence as well as substance-induced from methampetamine with visual hallucinations and methamphetamine and opioid use disorder. At this point acute risk of harm to self is high given recent attempts, command AH, chronic SI with acute worsening, substance use, limited supports and no local providers. Treating his psychosis and mood symptoms and then substance use treatment will be the most significant modifiable risk factors to reduce acute and chronic risk. He meets criteria for inpatient psychiatric treatment at this time but has tested positive for COVID+ so there are unfortunately no facilities able to accommodate him currently so he will remain on the medical floor with close psychiatric consultation and care. He is also presenting with medical symptoms however I suspect some of his weight loss and fatigue is related to his heavy use and withdrawal from methamphetamine in addition to COVID. Reviewed with him medication options. He consents to starting risperidone. Discussed risks/benefits/alternatives including but not limited to metabolic, movement (TD) and prolactin changes side effects. He is not interested in any antidepressant medications at this time except Wellbutrin, will confirm dose with provider's office in [place]. For now will hold off on restarting suboxone since he has no local prescribers and has been off for multiple days and until we can confirm prior dose with [place] provider. (1) Schizoaffective disorder: Schizoaffective disorder type: unspecified Qualified Code(s): F25.9 - Schizoaffective disorder, unspecified (2) Methamphetamine use disorder, severe: (3) Opioid use disorder, moderate, dependence: (4) Suicidal ideation: (5) Psychosis: (6) Depression: 09/14/21: -Continue 1-on-1 for safety -Patient may not leave AMA without psych clearance, would meet 302 critera if he asks to leave due to high risk of harm to self -Psychiatric liason will provide resources on local mental health services and substance use services and will refer to residential tx vs dual diagnosis once psychiatrically and medically stable -Start risperidone 0.5 mg qAM & 1.5 mg qhs -Fasting labs in AM (lipid panel and glucose) -Monitor withdrawal using COWS (Clinical Opiate Withdrawal Scale). Clonidine day 1-4: 0.1 mg q6h prn up to 1.2 mg/day (hold for SBP<100), day 5 complete and re duce dose by 0.2 mg per day until discontinued OR can use clonidine patch 0.2 mg per day. Symptomatic treatment: dicyclomine 20mg q6h prn abdominal cramps, loperamide 2mg q6h prn diarrhea, ibuprofen 600 mg q6h prn pain, hydroxyzine 50mg q6h prn anxiety, mirtazapine 15mg qhs prn for insomnia Risk Factors Assessment Male: Yes : Yes Do You Have Access To A Gun?: No Mental Health Diagnoses: Yes Substance Use Disorders: Yes Previous Attempt: Yes Previous Attempt; Didn't Tell Anyone: Yes Hopelessness: Yes Smoker: Yes Protective Factors Assessment Employed: No Stable Relationships: Yes Supportive Family: Yes Telehealth Telehealth Options: 2-way audio and video For the duration of the visit, provider was performing the assessment from: The same facility as the patient After establishing a telemedicine visit, patient was: Patient was verified with two unique identifiers, Patient/authorized rep acknowledged consent and unders tanding and Gave permission to continue telehealth session Total Time Spent (minutes): 35 Psych History Identifying Data 26 yo man with history of schizoaffective disorder, polysubstance use disorder (methamphetamine, cannabis, opioid) admitted medically for COVID, weight loss, and command AH with SI and plan. Chief Complaint "The voices get worse and then I use substances". History of Present Illness David presented to the hospital via ambulance with symptoms of COVID and then revealed worsening command AH telling him he was worthless and instructing him to kill himself via overdose on heroin, crashing his car or slitting his wrists. He has been off his psychiatric medications for about 2 months but previously was prescribed wellbutrin and seroquel. He states he's also been taking suboxone 8mg BID prescribed by a DR. Sargent in [facility] and that he has been withdrawing from suboxone for the last 3-4 days. Today he endorses some improvement in the auditory hallucinations and denies VH which he attributes to "I've been sleeping all day so haven't heard much". He endorses chronic SI which worsened recently due to "family issues" of his sister struggling with substance use issues like he does. States that a few days ago he had a suicide attempt via injecting himself with "4-5 grams of meth" which he thought would kill him "I hoped it would". Recently for the last few months he's been using meth "a lot" via smoking, IV and sniffing as well as heroin via smoking and sniffing though he is unable to estimate quantity of use stating "whatever I can get". Denies any recent overdoses or requiring narcan. He was recently staying with his sister in the [place] area but also sometimes lives with his father in [place] or his mother in [place]. He is motivated to recieve treatment to help with his mood and wants to return to residential substance use treatment once he's recovered from COVID and feels better. Psychiatric ROS notable for long hx of AH and VH, endorses hx of 4-5 of decrea sed sleep but denies any other symptoms of callum during that day (has never been hospitalized for callum and denies any hx of LI or Depakote trials), hx multiple psychiatric med trials in past. Endorses anxiety related to withdrawal symptoms. Endorses depression with PHQ-9 score of 19 and q9 with score of 3. Past Psychiatric History Previous Psych History: previously saw a psychiatrist in [place] who was prescribing suboxone, Wellbutrin and seroquel Outpatient Services: none ?Dr. Fay in [place] Previous Psych Admissions: once ~1 year ago in [place] for "paranoia" Do You Have Access To A Gun?: No History of Previous Suicide Attempt: Yes (few days ago via IV meth ) Past Medication Trials: wellbutrin, seroquel, suboxone, sertraline, fluoxetine, lexapro, zyprexa, haldol Additional Notes: hx seizures but denies any seziures while taking WEllbutrin Allergies Allergy/AdvReac Type Severity Reaction Status Date / Time Fish Containing Products Allergy Intermediate Hives Verified 09/13/21 17:57 hydroxyzine Allergy Intermediate ITCH Verified 09/13/21 17:57 Penicillins Allergy Intermediate Hives Verified 09/13/21 17:57 walnut Allergy Intermediate trouble Verified 09/13/21 17:57 breathing, hives Home Medications Medication Instructions Recorded Confirmed Type No Known Home Medications 09/13/21 09/13/21 History Family History extensive substance use, father and brother attempted suicide, states father and brother have BPAD Substance Abuse History hx methamphetamine use, marijuana and opioid. Denies alcohol use. Has DUI charges from last year related to driving while intoxicated with cannabis Personal History Childhood: see HPI Employment Status: Unemployed Beliefs That Will Affect Care: None History of Legal Problems: hx incarceration in 2018 in [place] for felony forgery Psychological Trauma History Comment: hx trauma as child Patient History Medical History Asthma Mandible fracture Polysubstance abuse Schizoaffective disorder Seizure h/o seizures - not on meds Surgical History History of mandibular surgery Family History Denies family history of Mental health disorder Social History Smoking Status: Current every day smoker Tobacco Type: Cigarettes Age Started Using Tobacco: 14; packs per day: 1; Second Hand Exposure: Yes; Do You Dip or Chew Tobacco: Yes; Tobacco Cessation Education Requested by Patient: Yes Hx Alcohol Use: Yes Alcohol type: hard liquor Hx Substance Use: Yes Non-Prescribed Medications: Methamphetamines Last Used Substance: Days (ago) Preferred Language: Divehi Communication Ability: Effective Office Support Assistant Required: No Beliefs That Will Affect Care: None marital status: Single Current Living Situation: Alone current occupational status: unemployed other: lives in [place] Feels Safe at Home: Yes Safety Concerns: Feels Safe At This Time Assistive Devices: None Physical Exam Psychiatric: Orientation: alert Apperance: appropriately dressed and appropriately groomed Eye Contact: + fair eye contact Motor Behavior: no abnormal motor movements Speech: normal rate/rhythm/volume of speech Affect: + depressed affect Mood: + depressed mood and + anxious mood Thought Process: + concrete thought process Thought Content: reality based w ithout delusions Suicidal Thoughts: denies suicidal plan and denies suicidal intent; + reports suicidal thoughts (intermittent chronic SI that has worsened ) Homicidal Thoughts: denies homicidal thoughts Hallucinations: + auditory hallucinations; no visual hallucinations, no tactile hallucinations and no gustatory hallucinations Cognition: recent memory grossly intact, remote memory grossly intact, attention grossly intact and language grossly intact Estimated Intelligence: consistent with education level Insight: + limited insight Judgement: + limited judgement Vital Signs (Past 24 Hours): Last Vital Signs Temp 36.3 C L 09/14/21 07:35 Pulse 65 09/14/21 07:35 Resp 18 09/14/21 07:35 BP 122/77 09/14/21 07:35 Pulse Ox 98 09/14/21 07:35 Review of Systems All systems reviewed & are unremarkable except as noted in HPI & below (endorses fatigue, cough, low energy, recent weight loss) Results & Data (PSY) Laboratory Results Vitamin B12, folate nml; TSH low, free T4 nml; UDS: + low acetaminophen, pos amph/meth (has been off Wellbutrin for ~2 months), pos THC Diagnostic Findings QTc wnl Medications Administered Acetaminophen (Acetaminophen 325 Mg Tab) 650 mg PO Q4H PRN PRN Reason: Pain or Fever Stop: 10/13/21 18:23 Last Admin: 09/14/21 08:37 Dose: 650 mg Documented by: [id number] Enoxaparin Sodium (Enoxaparin Inj 40 Mg/0.4 Ml Syr) 40 mg SQ Q24H LILIA Stop: 10/14/21 08:59 Last Admin: 09/14/21 07:50 Dose: 40 mg Documented by: [id number] Folic Acid (Folic Acid 1 Mg Tab) 1 mg PO QAM LILIA Stop: 10/13/21 18:23 Last Admin: 09/14/21 07:50 Dose: 1 mg Documented by: [id number] Admin: 09/13/21 19:48 Dose: 1 mg Documented by: [id number] Guaifenesin (Guaifenesin 600 Mg Tabcr) 1,200 mg PO Q12 LILIA Stop: 10/13/21 20:59 Last Admin: 09/14/21 07:50 Dose: 1,200 mg Documented by: [id number] Admin: 09/13/21 19:47 Dose: 1,200 mg Documented by: [id number] Sodium Chloride (Nss 1000ml) 1,000 mls @ 100 mls/hr IV .Q10H LILIA Stop: 09/14/21 12:59 Last Admin: 09/14/21 04:42 Dose: 100 mls/hr Documented by: [id number] Infusion: 09/14/21 03:35 Dose: 100 mls/hr Documented by: [id number] Admin: 09/13/21 18:43 Dose: 100 mls/hr Documented by: [id number] Miscellaneous (Remove Nicoderm Patch) 1 ea N/A [id number] [facility] Stop: 10/14/21 08:58 Last Admin: 09/14/21 07:50 Dose: Not Given Documented by: [id number] Multivitamins/Minerals (Cerovite Adv Formula Tab) 1 tab PO QAM [facility] Stop: 10/14/21 08:59 Last Admin: 09/14/21 07:50 Dose: 1 tab Documented by: [id number] Nicotine (Nicotine 21 Mg/24 Hr Tdsy) 21 mg TD QAM [facility] Stop: 10/13/21 18:23 Last Admin: 09/14/21 07:50 Dose: Not Given Documented by: [id number] Admin: 09/13/21 19:48 Dose: Not Given Documented by: [id number] Ondansetron HCl (Ondansetron Inj 2 Mg/Ml 2 Ml Vial) 4 mg IV Q6H PRN PRN Reason: Nausea Stop: 10/13/21 18:23 Last Admin: 09/14/21 07:49 Dose: 4 mg Documented by: [id number] Thiamine HCl (Thiamine Hcl 100 Mg Tab) 200 mg PO BID [facility] Stop: 10/13/21 20:59 Last Admin: 09/14/21 07:49 Dose: 200 mg Documented by: [id number] Admin: 09/13/21 19:48 Dose: 200 mg Documented by: [id number] Coding Level of Care Code 26993 Inpt Consult Level 4 Diagnoses Schizoaffective disorder F25.9 Schizoaffective disorder type: unspecified Methamphetamine use disorder, severe F15.20 Opioid use disorder, moderate, dependence F11.20 Suicidal ideation R45.851 Psychosis F29 Depression F32.A
[2021-09-14] MEDS: risperiDONE 0.5 MG TABLET PO SCH ×2 (13:53→20:13)
[2021-09-14] MEDS: BUPRENORPHINE/NALOXONE 8/2 MG TAB SL SCH (17:04)
[2021-09-14] MEDS ORDERED: BUPRENORPHINE/NALOXONE 8/2 MG TAB SL SCH (21:00)
--- NOTE | 2021-09-14 21:05 | Hospitalist Progress Note ---
Date of Service September 14, 2021 Assessment & Plan (1) COVID-19 virus infection: Plan: He is less than 7 days into his illness. Fortunately he has no evidence of pulmonary infection radiographically. He has no indication for steroids or Remdesivir. I am concerned, based on his chest pain and EKG findings, that he could have pericarditis. Will check sed rate and crp: negative Troponin noted to be negative. Will place on telemetry in COVID unit. IV fluids, supportive care, cough medications, albuterol prn, etc. will continue to monitor. (2) Psychosis: Plan: Patient with auditory and visual hallucinations. He has a known history of schizoaffective disorder but he is not on chronic antipsychotic medication. He recently moved from [place] to [place] in the last [address] one-to-one observation. Psychiatry consult. Olanzapine 10mg po prn for agitation/aggressive behavior/severe psychosis. Defer additional meds to psychiatry. appreciate input from psych, unable to sign out AMA (3) Suicidal ideation: Plan: Place on one-to-one observation/suicide precautions. Psychiatry consult. (4) Polysubstance abuse: Plan: Meth, tobacco, THC, etc. Nicoderm patch. social work consult to assist with substance abuse treatment options for after his medical discharge. (5) Schizoaffective disorder: Plan: patient reports he was diagnosed with such in the past. see above. (6) Asthma: Plan: albuterol prn. no exacerbation at this time, but low threshold for steroids if needed. (7) History of seizure: Plan: noted. not on chronic anti-epileptic medications. (8) Severe protein-calorie malnutrition: Plan: patient reports significant weight loss (50 pounds?) over the last few months. he looks malnourished and generally unwell on physical exam. check TSH in am. check B12, etc. weight loss 2nd to drug abuse? lack of finances to purchase healthy foods? other occult process? add MVI. add thiamine 200mg BID. add folate. (9) Weight loss: Plan: as in #8 above (10) Tobacco dependence: Plan: nicoderm patch 21mg/day added suboxone. (11) Chest pain: Plan: could be 2nd to bronchoconstriction from his asthma/COVID-19 infection. could be pericardial in nature given EKG findings. no evidence of pneumonia on cxr or CT chest. troponin is negative. check sed rate and crp. consider empiric NSAIDs. Currently pain free (12) DVT prophylaxis: Plan: lovenox once daily Admission and Anticipated Discharge Date Admission Date: September 13, 2021 Subjective Patient reports feeling well. Currently denies CP. He is requesting his suboxone 8 BID. Patient reports he would pick it up at [place], he is planning on staying local and will f/u with [facility]. Review of Systems Review of Systems: All systems reviewed & are unremarkable except as noted in HPI & below Physical Exam Physical Exam: Gen - NAD eyes - pupils appear symmetric HENT - MM dry; poor dentition neck - no lymph nodes, no JVD heart - RRR, s1 s2, no murmur chest - no reproducible chest wall pain to palpation lungs - no adventitious sounds, no increased work of breathing abd - soft, NT, ND, BS+, no HSM ext - no edema, pulses 2+ b/l skin - scattered rash on upper back, distal legs; erythematous papules neuro - strength 5/5 x 4 exts Results & Data Results & Data ([facility]) Vital Signs (Past 12 Hours) Vital Signs Temp Pulse Pulse Resp BP Pulse Ox Pulse Ox 09/14/21 19:13 36.5 C 71 18 123/65 97 09/14/21 18:01 97 09/14/21 16:01 64 09/14/21 10:31 36.7 C 75 18 122/64 98 09/14/21 09:38 60 PG Care Time/CCT Total # of Minutes Spent Total Time Spent with Patient: Total time spent is greater than 50% in coordination of care (as documented) at patient's floor/unit and/or counseling patient: Coding Level of Care Code 25621 Subseq Hosp Care Lvl 2 Diagnoses COVID-19 virus infection U07.1 Psychosis F29 Suicidal ideation R45.851 Polysubstance abuse F19.10 Schizoaffective disorder F25.9 Schizoaffective disorder type: unspecified Asthma J45.909 History of seizure Z87.898 Severe protein-calorie malnutrition E43 Weight loss R63.4 Tobacco dependence F17.200 Chest pain R07.9 DVT prophylaxis Z29.9 (1) Schizoaffective disorder Schizoaffective disorder type: unspecified Qualified Code(s): F25.9 - Schizoaffective disorder, unspecified
[2021-09-15 07:15] LABS: Chol HDL Ratio 3.1 (0-5)
[2021-09-15] MEDS: guaiFENesin 600 MG TABCR PO SCH ×2 (09:01→21:08)
[2021-09-15] MEDS: risperiDONE 0.5 MG TABLET PO SCH ×2 (09:02→21:09)
[2021-09-15] MEDS: CEROVITE ADV FORMULA TAB PO SCH (09:02)
[2021-09-15] MEDS: THIAMINE HCL 100 MG TAB PO SCH ×2 (09:03→21:09)
[2021-09-15] MEDS: NICOTINE 21 MG/24 HR TDSY TD SCH (09:03)
[2021-09-15] MEDS: FOLIC ACID 1 MG TAB PO SCH (09:06)
[2021-09-15] MEDS: ENOXAPARIN INJ 40 MG/0.4 ML SYR SQ SCH (09:06)
[2021-09-15] MEDS: BUPRENORPHINE/NALOXONE 8/2 MG TAB SL SCH ×2 (09:31→21:08)
--- NOTE | 2021-09-15 10:24 | Psychiatric Progress Note ---
Date of Service September 15, 2021 Impression / Recommendations Impression This is a 26 yo with a history of schizoaffective disorder, polysubstance use admitted medically. Diagnostically consistent with unspecified depression-likely combination of MDD and methamphetamine and opioid withdrawal as well as unpsceified psychosis-likely combination of schizoaffective disorder with recent medication non-adherence as well as substance-induced from methampetamine with visual hallucinations and methamphetamine and opioid use disorder. At this point acute risk of harm to self is high given recent attempts, command AH, chronic SI with acute worsening, substance use, limited supports and no local providers. Treating his psychosis and mood symptoms and then substance use treatment will be the most significant modifiable risk factors to reduce acute and chronic risk. He meets criteria for inpatient psychiatric treatment at this time but has tested positive for COVID+ so there are unfortunately no facilities able to accommodate him currently so he will remain on the medical floor with close psychiatric consultation and care. He is also presenting with medical symptoms however I suspect some of his weight loss and fatigue is related to his heavy use and withdrawal from methamphetamine in addition to COVID. 09/15/21: fasting labs reviewed and normal, he's tolerating risperidone well so far. Some fatigue but likely due to combination of factors including COVID infection and withdrawing from methamphetamine. Working to confirm dosages of prior to admission medications including suboxone. Will consider restarting Wellbutrin as his medical status improves, for now still on telemetry. (1) Schizoaffective disorder: (2) Methamphetamine use disorder, severe: (3) Opioid use disorder, moderate, dependence: (4) Suicidal ideation: (5) Psychosis: (6) Depression: 09/15/21: -Continue 1-on-1 for safety -Patient may not leave AMA, would meet 302 criteria -Continue risperidone -[facility] faxed to his suboxone/psychiatric provider in [place], awaiting records of prior to admission medication dosages and suboxone scripts 09/14/21: -Continue 1-on-1 for safety -Patient may not leave AMA without psych clearance, would meet 302 critera if he asks to leave due to high risk of harm to self -Psychiatric liason will provide resources on local mental health services and substance use services and will refer to residential tx vs dual diagnosis once psychiatrically and medically stable -Start risperidone 0.5 mg qAM & 1.5 mg qhs -Fasting labs in AM (lipid panel and glucose) -Monitor withdrawal using COWS (Clinical Opiate Withdrawal Scale). Clonidine day 1-4: 0.1 mg q6h prn up to 1.2 mg/day (hold for SBP<100), day 5 complete and reduce dose by 0.2 mg per day until discontinued OR can use clonidine patch 0.2 mg per day. Symptomatic treatment: dicyclomine 20mg q6h prn abdominal cramps, loperamide 2mg q6h prn diarrhea, ibuprofen 600 mg q6h prn pain, hydroxyzine 50mg q6h prn anxiety, mirtazapine 15mg qhs prn for insomnia Risk Factors Assessment Male: Yes : Yes Do You Have Access To A Gun?: No Mental Health Diagnoses: Yes Substance Use Disorders: Yes Previous Attempt: Yes Previous Attempt; Didn't Tell Anyone: Yes Hopelessness: Yes Smoker: Yes Protective Factors Assessment Employed: No Stable Relationships: Yes Supportive Family: Yes Interval History Identifying Information 26 yo man with history of schizoaffective disorder, polysubstance use disorder (methamphetamine, cannabis, opioid) admitted medically for COVID, weight loss, and command AH with SI and plan. Chief Complaint "I'm ok". Review of Systems Notes Feeling tired, body aches, chest tightness Telehealth Telehealth Options: Telephone only For the duration of the visit, provider was performing the assessment from: The same facility as the patient After establishing a telemedicine visit, patient was: Patient was verified with two unique identifiers, Patient/authorized rep acknowledged consent and understanding and Gave permission to continue telehealth session Total Time Spent (minutes): 25 Subjective Subjective Patient was seen & assessed and interval progress reviewed with treatment team nursing and social work. Reviewed treatment team plan with him verbally. Today he reports "I'm ok I guess, I've been sleeping most of the day". Reports his mood is "boni down". Having some SI "I did" about one hour ago, no plan or intent. "it just occurred" lasted about 10 minutes. He feels safe in the hospital. No voices today. No visual hallucinations. He's wondering if the risperidone is making him tired but otherwise no side effects. He thinks risperidone is helping keep the voices away so does not want to reduce the dose. He remains interested in restarting Wellbutrin to help with his mood. Physical Exam Psychiatric Orientation: alert Speech: normal rate/rhythm/volume of speech Mood: + depressed mood Thought Process: + concrete thought process Thought Content: reality based without delusions Suicidal Thoughts: denies suicidal plan and denies suicidal intent; + reports suicidal thoughts (intermittent chronic SI that has worsened ) Homicidal Thoughts: denies homicidal thoughts Hallucinations: no auditory hallucinations and no visual hallucinations Cognition: recent memory grossly intact, remote memory grossly intact, attention grossly intact and language grossly intact Insight: + limited insight Judgement: + limited judgement Vital Signs (Past 24 Hours) Last Vital Signs Temp 36.6 C 09/15/21 07:00 Pulse 64 09/15/21 07:00 Resp 18 09/15/21 07:00 BP 123/78 09/15/21 07:00 Pulse Ox 97 09/15/21 07:00 Results & Data ([facility]) Laboratory Results Laboratory Results - last 24 hr 09/15/21 06:23 Triglycerides 59 Cholesterol 119 LDL Cholesterol, Calc 68 VLDL Cholesterol, Calc 12 HDL Cholesterol 39 Cholesterol/HDL Ratio 3.1 Current Inpatient Medications Current Inpatient Medications: Current Inpatient Medications Acetaminophen (Acetaminophen 325 Mg Tab) 650 mg PO Q4H PRN PRN Reason: Pain or Fever Stop: 10/13/21 18:23 Last Admin: 09/14/21 08:37 Dose: 650 mg Documented by: Albuterol (Albuterol Hfa 8 Gm Inhaler) 2 puffs INH Q4H PRN PRN Reason: cough/wheeze/dyspnea Stop: 10/13/21 18:23 Buprenorphine/Naloxone (Buprenorphine/Naloxone 8/2 Mg Tab) 1 tab SL BID [facility] Stop: 10/14/21 16:14 Last Admin: 09/15/21 09:31 Dose: 1 tab Documented by: Enoxaparin Sodium (Enoxaparin Inj 40 Mg/0.4 Ml Syr) 40 mg SQ Q24H [facility] Stop: 10/14/21 08:59 Last Admin: 09/15/21 09:06 Dose: 40 mg Documented by: Folic Acid (Folic Acid 1 Mg Tab) 1 mg PO QAM [facility] Stop: 10/13/21 18:23 Last Admin: 09/15/21 09:06 Dose: 1 mg Documented by: Guaifenesin (Guaifenesin 600 Mg Tabcr) 1,200 mg PO Q12 [facility] Stop: 10/13/21 20:59 Last Admin: 09/15/21 09:01 Dose: 1,200 mg Documented by: Miscellaneous (Remove Nicoderm Patch) 1 ea N/A DAILY@0859 [facility] Stop: 10/14/21 08:58 Last Admin: 09/15/21 09:04 Dose: 1 ea Documented by: Multivitamins/Minerals (Cerovite Adv Formula Tab) 1 tab PO QAM [facility] Stop: 10/14/21 08:59 Last Admin: 09/15/21 09:02 Dose: 1 tab Documented by: Nicotine (Nicotine 21 Mg/24 Hr Tdsy) 21 mg TD QAM [facility] Stop: 10/13/21 18:23 Last Admin: 09/15/21 09:03 Dose: Not Given Documented by: Olanzapine (Olanzapine 10 Mg Tab) 10 mg PO HS PRN PRN Reason: agitation/aggression/severe ps Stop: 10/14/21 20:59 Ondansetron HCl (Ondansetron Inj 2 Mg/Ml 2 Ml Vial) 4 mg IV Q6H PRN PRN Reason: Nausea Stop: 10/13/21 18:23 Last Admin: 09/14/21 07:49 Dose: 4 mg Documented by: Risperidone (Risperidone 0.5 Mg Tablet) 0.5 mg PO QAM [facility] Stop: 10/14/21 12:59 Last Admin: 09/15/21 09:02 Dose: 0.5 mg Documented by: Risperidone (Risperidone 0.5 Mg Tablet) 1.5 mg PO HS [facility] Stop: 10/14/21 20:59 Last Admin: 09/14/21 20:13 Dose: 1.5 mg Documented by: Thiamine HCl (Thiamine Hcl 100 Mg Tab) 200 mg PO BID [facility] Stop: 10/13/21 20:59 Last Admin: 09/15/21 09:03 Dose: 200 mg Documented by: (1) Schizoaffective disorder Schizoaffective disorder type: unspecified Qualified Code(s): F25.9 - Schizoaffective disorder, unspecified
--- NOTE | 2021-09-15 15:22 | Hospitalist Progress Note ---
Date of Service September 15, 2021 Assessment & Plan (1) COVID-19 virus infection: Plan: He is less than 7 days into his illness. Fortunately he has no evidence of pulmonary infection radiographically. He has no indication for steroids or Remdesivir. CONCERN OVER PERICARDITIS: inflammatory markers negative Troponin noted to be negative. felicia place on NSAID. IV fluids, supportive care, cough medications, albuterol prn, etc. will continue to monitor. (2) Psychosis: Plan: Patient with auditory and visual hallucinations. He has a known history of schizoaffective disorder but he is not on chronic antipsychotic medication. He recently moved from [place] to [place] in the last [address] one-to-one observation. Psychiatry consult. Olanzapine 10mg po prn for agitation/aggressive behavior/severe psychosis. Defer additional meds to psychiatry. appreciate input from psych, unable to sign out AMA (3) Suicidal ideation: Plan: Place on one-to-one observation/suicide precautions. Psychiatry consult. (4) Polysubstance abuse: Plan: Meth, tobacco, THC, etc. Nicoderm patch. social work consult to assist with substance abuse treatment options for after his medical discharge. (5) Schizoaffective disorder: Plan: patient reports he was diagnosed with such in the past. see above. (6) Asthma: Plan: albuterol prn. no exacerbation at this time, but low threshold for steroids if needed. (7) History of seizure: Plan: noted. not on chronic anti-epileptic medications. (8) Severe protein-calorie malnutrition: Plan: patient reports significant weight loss (50 pounds?) over the last few months. he looks malnourished and generally unwell on physical exam. check TSH in am. check B12, etc. weight loss 2nd to drug abuse? lack of finances to purchase healthy foods? other occult process? add MVI. add thiamine 200mg BID. add folate. (9) Weight loss: Plan: as in #8 above (10) Tobacco dependence: Plan: nicoderm patch 21mg/day added suboxone. (11) Chest pain: Plan: could be 2nd to bronchoconstriction from his asthma/COVID-19 infection. could be pericardial in nature given EKG findings. no evidence of pneumonia on cxr or CT chest. troponin is negative. check sed rate and crp. consider empiric NSAIDs. Currently pain free (12) DVT prophylaxis: Plan: lovenox once daily Admission and Anticipated Discharge Date Admission Date: September 13, 2021 Subjective Patient reports having sharp midsternum chest pain which is moderate in intensity. Review of Systems Review of Systems: All systems reviewed & are unremarkable except as noted in HPI & below Physical Exam Physical Exam: Gen - NAD eyes - pupils appear symmetric HENT - MM dry; poor dentition neck - no lymph nodes, no JVD heart - RRR, s1 s2, no murmur chest - no reproducible chest wall pain to palpation lungs - no adventitious sounds, no increased work of breathing abd - soft, NT, ND, BS+, no HSM ext - no edema, pulses 2+ b/l skin - scattered rash on upper back, distal legs; erythematous papules neuro - strength 5/5 x 4 exts Results & Data Results & Data ([facility]) Vital Signs (Past 12 Hours) Vital Signs Temp Pulse Pulse Resp BP Pulse Ox 09/15/21 11:01 36.4 C L 71 18 138/78 97 09/15/21 07:00 36.6 C 64 18 123/78 97 09/15/21 06:23 62 09/15/21 05:50 69 PG Care Time/CCT Total # of Minutes Spent Total Time Spent with Patient: Total time spent is greater than 50% in coordination of care (as documented) at patient's floor/unit and/or counseling patient: Coding Level of Care Code 06024 Subseq Hosp Care Lvl 2 Diagnoses COVID-19 virus infection U07.1 Psychosis F29 Suicidal ideation R45.851 Polysubstance abuse F19.10 Schizoaffective disorder F25.9 Schizoaffective disorder type: unspecified Asthma J45.909 History of seizure Z87.898 Severe protein-calorie malnutrition E43 Weight loss R63.4 Tobacco dependence F17.200 Chest pain R07.9 DVT prophylaxis Z29.9 (1) Schizoaffective disorder Schizoaffective disorder type: unspecified Qualified Code(s): F25.9 - Schizoaffective disorder, unspecified
[2021-09-15] MEDS: NAPROXEN 250 MG TAB PO SCH (21:08)
[2021-09-15] MEDS: SIMETHICONE 40 MG/0.6 ML 30ML PO SCH (21:35)
--- NOTE | 2021-09-16 06:24 | Electrocardiogram Report ---
Test Reason : Blood Pressure : / mmHG Vent. Rate : 069 BPM Atrial Rate : 069 BPM P-R Int : 166 ms QRS Dur : 096 ms QT Int : 364 ms P-R-T Axes : 119 112 114 degrees QTc Int : 390 ms Suspect arm lead reversal, interpretation assumes no reversal Normal sinus rhythm Limb lead reversal Early repolarization Abnormal ECG When compared with ECG of 13-SEP-2021 13:14, Limb lead reversal is now present Confirmed by Gómez Bledsoe ([id number]) on 09/16/2021 6:23:31 AM Referred By: REFERRED SELF Confirmed By:Gómez Bledsoe
--- NOTE | 2021-09-16 06:44 | Electrocardiogram Report ---
Test Reason : Blood Pressure : / mmHG Vent. Rate : 064 BPM Atrial Rate : 064 BPM P-R Int : 184 ms QRS Dur : 092 ms QT Int : 384 ms P-R-T Axes : 031 059 054 degrees QTc Int : 396 ms Normal sinus rhythm Early repolarization When compared with ECG of 15-SEP-2021 09:34, Limb lead reversal is no longer present Confirmed by Gómez Bledsoe ([id number]) on 09/16/2021 6:43:41 AM Referred By: REFERRED SELF Confirmed By:Gómez Bledsoe
[2021-09-16 06:50] LABS: Creatinine Clr Calc Pharmacy 307.7 ml/min; Est GFR (African American) > 150.0 ml/min; Est GFR (Non-African American) > 150.0 ml/min
[2021-09-16] MEDS: BUPRENORPHINE/NALOXONE 8/2 MG TAB SL SCH ×2 (08:44→20:28)
[2021-09-16] MEDS: ENOXAPARIN INJ 40 MG/0.4 ML SYR SQ SCH (08:44)
[2021-09-16] MEDS: CEROVITE ADV FORMULA TAB PO SCH (08:45)
[2021-09-16] MEDS: THIAMINE HCL 100 MG TAB PO SCH ×2 (08:46→20:28)
[2021-09-16] MEDS: FOLIC ACID 1 MG TAB PO SCH (08:46)
[2021-09-16] MEDS: risperiDONE 0.5 MG TABLET PO SCH ×2 (08:47→20:38)
[2021-09-16] MEDS: SIMETHICONE 40 MG/0.6 ML 30ML PO SCH ×2 (08:48→20:38)
[2021-09-16] MEDS: guaiFENesin 600 MG TABCR PO SCH ×2 (08:56→20:28)
[2021-09-16] MEDS: NAPROXEN 250 MG TAB PO SCH ×2 (08:58→20:28)
[2021-09-16] MEDS: NICOTINE 21 MG/24 HR TDSY TD SCH (09:02)
--- NOTE | 2021-09-16 12:22 | Psychiatric Progress Note ---
Date of Service September 16, 2021 Impression / Recommendations Impression This is a 26 yo with a history of schizoaffective disorder, polysubstance use admitted medically. Diagnostically consistent with unspecified depression-likely combination of MDD and methamphetamine and opioid withdrawal as well as unspecified psychosis-likely combination of schizoaffective disorder with recent medication non-adherence as well as substance-induced from methamphetamine with visual hallucinations and methamphetamine and opioid use disorder. At this point acute risk of harm to self is low given no active SI since admission and no command AH and improvement in mood and psychosis with medicatio n management and avoidance of substance use and his desire to continue with suboxone and attend residential substance use treatment. Chronic risk remains high given recent attempts while using substances, history of command AH, and history of chronic intermittent SI, hx polysubstance use. The most significant modifiable risk factor to reduce his acute and chronic risk will be adherence with medications and avoidance of substance use. Encouragingly he is motivated to continue with suboxone and to attend residential substance use treatment. This is felt to be the most significant modifiable risk factor for acute and chronic risk at this point. He is not appropriate for inpatient psychiatric treatment at this time due to COVID+ status nor does he desire inpatient treatment nor is he felt to meet 302 criteria at this time as his active SI has resolved and no further command auditory hallucinations. 09/16/21: Confirmed prior to admission suboxone dosing and recent psychiatric medications and outpatient care with his MAT clinic in [place]. His mood has improved and psychosis has improved. No longer meets 302 criteria. From a psychiatric standpoint he is now stable and appropriate for discharge to residential substance use treatment (once no longer with active COVID infection and meeting facilities specific admission criteria regarding this) or for interim outpatient treatment with suboxone until residential treatment can begin. Risk of relapse is certainly lower if he goes straight to residential treatment but unclear if this will be an option depending on how long he will require for medical stabilization and how long he will need to wait regarding COVID+ status before he can start at a residential treatment facility. If he is agreeable we will make referrals for outpatient psychiatric follow-up at which time he can consider restarting Wellbutrin (holding for now given COVID symptoms and ongoing chest pain) should he be unable to immediately start with residential treatment. He also has the ability to follow up with his provider in [place] should he chose to do so for psychiatric medication management and MAT suboxone. (1) Schizoaffective disorder: (2) Methamphetamine use disorder, severe: (3) Opioid use disorder, moderate, dependence: (4) Suicidal ideation: (5) Psychosis: (6) Depression: 09/16/21: -Discontinue 1-on-1 -May leave AMA, no longer meets 302 criteria -Continue risperidone, should be given script on discharge 09/15/21: -Continue 1-on-1 for safety -Patient may not leave AMA, would meet 302 criteria -Continue risperidone -[facility] faxed to his suboxone/psychiatric provider in [place], awaiting records of prior to admission medication dosages and suboxone scripts 09/14/21: -Continue 1-on-1 for safety -Patient may not leave AMA without psych clearance, would meet 302 critera if he asks to leave due to high risk of harm to self -Psychiatric liason will provide resources on local mental health services and substance use services and will refer to residential tx vs dual diagnosis once psychiatrically and medically stable -Start risperidone 0.5 mg qAM & 1.5 mg qhs -Fasting labs in AM (lipid panel and glucose) -Monitor withdrawal using COWS (Clinical Opiate Withdrawal Scale). Clonidine day 1-4: 0.1 mg q6h prn up to 1.2 mg/day (hold for SBP<100), day 5 complete and reduce dose by 0.2 mg per day until discontinued OR can use clonidine patch 0.2 mg per day. Symptomatic treatment: dicyclomine 20mg q6h prn abdominal cramps, loperamide 2mg q6h prn diarrhea, ibuprofen 600 mg q6h prn pain, hydroxyzine 50mg q6h prn anxiety, mirtazapine 15mg qhs prn for insomnia Risk Factors Assessment Male: Yes : Yes Do You Have Access To A Gun?: No Mental Health Diagnoses: Yes Substance Use Disorders: Yes Previous Attempt: Yes Previous Attempt; Didn't Tell Anyone: Yes Hopelessness: No Smoker: Yes Protective Factors Assessment Employed: No Stable Relationships: Yes Supportive Family: Yes Good Rapport with Provider: Yes Interval History Identifying Information 26 yo man with history of schizoaffective disorder, polysubstance use disorder (methamphetamine, cannabis, opioid) admitted medically for COVID, weight loss, and command AH with SI and plan. Chief Complaint "I'm good I guess". Review of Systems Notes Sleep "not too good", waking up due to discomfort with IV site; appetite is "pretty decent I guess". Telehealth Telehealth Options: Telephone only For the duration of the visit, provider was performing the assessment from: The same facility as the patient After establishing a telemedicine visit, patient was: Patient was verified with two unique identifiers, Patient/authorized rep acknowledged consent and understanding and Gave permission to continue telehealth session Total Time Spent (minutes): 30 Subjective Subjective Patient was seen & assessed and interval progress reviewed. David states he is "good, I guess". States he's been sleeping most of the day and not feeling very well due to chest tightness and arm pain. He denies any SI today. He heard the AH "a little bit this morning but he couldn't make them out", just noise, not telling him anything. No command auditory hallucinations. He feels the me dication is helpful. Remains eager to restart Wellbutrin in the future, discussed rationale for not restarting until COVID symptoms and chest tightness improve. Discussed potential options for outpatient psychiatric care, he was unsure if he had any insurance for PA. Social work and psych liason to discuss this with medical support specialist to determine what insurance he has and then can consider potential referral options for outpatient. Physical Exam Psychiatric Orientation: alert and oriented x 3 Speech: normal rate/rhythm/volume of speech Mood: no depressed mood and no anxious mood Thought Process: goal directed thought process Thought Content: reality based without delusions Suicidal Thoughts: denies suicidal thoughts Homicidal Thoughts: denies homicidal thoughts Hallucinations: + auditory hallucinations (intermittent but no longer with any command AH, rare noises, no clear voice); no visual hallucinations Cognition: recent memory grossly intact, remote memory grossly intact, attention grossly intact and language grossly intact Insight: + fair insight Judgement: + fair judgement Vital Signs (Past 24 Hours) Last Vital Signs Temp 36.6 C 09/16/21 07:50 Pulse 68 09/16/21 07:50 Resp 18 09/16/21 07:50 BP 115/73 09/16/21 07:50 Pulse Ox 97 09/16/21 07:50 Results & Data ([facility]) Laboratory Results Laboratory Results - last 24 hr 09/16/21 05:50 Creatinine 0.46 L Est Cr Clr Drug Dosing 307.7 Est GFR ( Amer) > 150.0 Est GFR (Non-Af Amer) > 150.0 Current Inpatient Medications Current Inpatient Medications: Current Inpatient Medications Acetaminophen (Acetaminophen 325 Mg Tab) 650 mg PO Q4H PRN PRN Reason: Pain or Fever Stop: 10/13/21 18:23 Last Admin: 09/14/21 08:37 Dose: 650 mg Documented by: Albuterol (Albuterol Hfa 8 Gm Inhaler) 2 puffs INH Q4H PRN PRN Reason: cough/wheeze/dyspnea Stop: 10/13/21 18:23 Buprenorphine/Naloxone (Buprenorphine/Naloxone 8/2 Mg Tab) 1 tab SL BID [facility] Stop: 10/14/21 16:14 Last Admin: 09/16/21 08:44 Dose: 1 tab Documented by: Enoxaparin Sodium (Enoxaparin Inj 40 Mg/0.4 Ml Syr) 40 mg SQ Q24H [facility] Stop: 10/14/21 08:59 Last Admin: 09/16/21 08:44 Dose: 40 mg Documented by: Folic Acid (Folic Acid 1 Mg Tab) 1 mg PO QAM [facility] Stop: 10/13/21 18:23 Last Admin: 09/16/21 08:46 Dose: 1 mg Documented by: Guaifenesin (Guaifenesin 600 Mg Tabcr) 1,200 mg PO Q12 [facility] Stop: 10/13/21 20:59 Last Admin: 09/16/21 08:56 Dose: 1,200 mg Documented by: Miscellaneous (Remove Nicoderm Patch) 1 ea N/A DAILY@0859 [facility] Stop: 10/14/21 08:58 Last Admin: 09/16/21 09:01 Dose: 1 ea Documented by: Multivitamins/Minerals (Cerovite Adv Formula Tab) 1 tab PO QAM [facility] Stop: 10/14/21 08:59 Last Admin: 09/16/21 08:45 Dose: 1 tab Documented by: Naproxen (Naproxen 250 Mg Tab) 250 mg PO BID [facility] Stop: 10/15/21 20:59 Last Admin: 09/16/21 08:58 Dose: 250 mg Documented by: Nicotine (Nicotine 21 Mg/24 Hr Tdsy) 21 mg TD QAM [facility] Stop: 10/13/21 18:23 Last Admin: 09/16/21 09:02 Dose: Not Given Documented by: Olanzapine (Olanzapine 10 Mg Tab) 10 mg PO HS PRN PRN Reason: agitation/aggression/severe ps Stop: 10/14/21 20:59 Ondansetron HCl (Ondansetron Inj 2 Mg/Ml 2 Ml Vial) 4 mg IV Q6H PRN PRN Reason: Nausea Stop: 10/13/21 18:23 Last Admin: 09/14/21 07:49 Dose: 4 mg Documented by: Risperidone (Risperidone 0.5 Mg Tablet) 0.5 mg PO QAM [facility] Stop: 10/14/21 12:59 Last Admin: 09/16/21 08:47 Dose: 0.5 mg Documented by: Risperidone (Risperidone 0.5 Mg Tablet) 1.5 mg PO HS [facility] Stop: 10/14/21 20:59 Last Admin: 09/15/21 21:09 Dose: 1.5 mg Documented by: Simethicone (Simethicone 40 Mg/0.6 Ml 30ml) 80 mg PO BID [facility] Stop: 10/15/21 20:59 Last Admin: 09/16/21 08:48 Dose: 80 mg Documented by: Thiamine HCl (Thiamine Hcl 100 Mg Tab) 200 mg PO BID [facility] Stop: 10/13/21 20:59 Last Admin: 09/16/21 08:46 Dose: 200 mg Documented by: (1) Schizoaffective disorder Schizoaffective disorder type: unspecified Qualified Code(s): F25.9 - Schizoaffective disorder, unspecified
--- NOTE | 2021-09-16 22:07 | Hospitalist Progress Note ---
Date of Service September 16, 2021 Assessment & Plan (1) COVID-19 virus infection: Plan: He is less than 7 days into his illness. Fortunately he has no evidence of pulmonary infection radiographically. He has no indication for steroids or Remdesivir. CONCERN OVER PERICARDITIS: inflammatory markers negative Troponin noted to be negative. felicia place on NSAID. Pain improved on 09/16 Still comfortable on room air IV fluids, supportive care, cough medications, albuterol prn, etc. will continue to monitor. (2) Psychosis: Plan: Patient with auditory and visual hallucinations. He has a known history of schizoaffective disorder but he is not on chronic antipsychotic medication. He recently moved from [place] to [place] in the last [address] on one-to-one observation. Psychiatry consult. Olanzapine 10mg po prn for agitation/aggressive behavior/severe psychosis. Defer additional meds to psychiatry. appreciate input from psych, unable to sign out AMA. awaiting discharge as patient needs to be on suboxone and needs to get established ith local provider. case management working on this. (3) Suicidal ideation: Plan: Place on one-to-one observation/suicide precautions. Psychiatry consult. (4) Polysubstance abuse: Plan: Meth, tobacco, THC, etc. Nicoderm patch. social work consult to assist with substance abuse treatment options for after his medical discharge. (5) Schizoaffective disorder: Plan: patient reports he was diagnosed with such in the past. see above. (6) Asthma: Plan: albuterol prn. no exacerbation at this time, but low threshold for steroids if needed. (7) History of seizure: Plan: noted. not on chronic anti-epileptic medications. (8) Severe protein-calorie malnutrition: Plan: patient reports significant weight loss (50 pounds?) over the last few months. he looks malnourished and generally unwell on physical exam. check TSH in am. check B12, etc. weight loss 2nd to drug abuse? lack of finances to purchase healthy foods? other occult process? add MVI. add thiamine 200mg BID. add folate. (9) Weight loss: Plan: as in #8 above (10) Tobacco dependence: Plan: nicoderm patch 21mg/day added suboxone. (11) Chest pain: Plan: could be 2nd to bronchoconstriction from his asthma/COVID-19 infection. could be pericardial in nature given EKG findings. no evidence of pneumonia on cxr or CT chest. troponin is negative. check sed rate and crp. consider empiric NSAIDs. Currently pain free (12) DVT prophylaxis: Plan: lovenox once daily Admission and Anticipated Discharge Date Admission Date: September 13, 2021 Subjective Patient reports no new symptoms. Review of Systems Review of Systems: All systems reviewed & are unremarkable except as noted in HPI & below Physical Exam Physical Exam: Gen - NAD eyes - pupils appear symmetric HENT - MM dry; poor dentition neck - no lymph nodes, no JVD heart - RRR, s1 s2, no murmur chest - no reproducible chest wall pain to palpation lungs - no adventitious sounds, no increased work of breathing abd - soft, NT, ND, BS+, no HSM ext - no edema, pulses 2+ b/l skin - scattered rash on upper back, distal legs; erythematous papules neuro - strength 5/5 x 4 exts Results & Data Results & Data ([facility]) Vital Signs (Past 12 Hours) Vital Signs Temp Pulse Pulse Resp BP Pulse Ox Pulse Ox 09/16/21 19:39 36.4 C L 78 18 119/74 95 09/16/21 18:00 96 09/16/21 15:18 36.7 C 67 20 119/67 96 09/16/21 14:16 71 09/16/21 12:38 36.4 C L 70 18 118/74 96 PG Care Time/CCT Total # of Minutes Spent Total Time Spent with Patient: Total time spent is greater than 50% in coordination of care (as documented) at patient's floor/unit and/or counseling patient: Coding Level of Care Code 08887 Subseq Hosp Care Lvl 2 Diagnoses COVID-19 virus infection U07.1 Psychosis F29 Suicidal ideation R45.851 Polysubstance abuse F19.10 Schizoaffective disorder F25.9 Schizoaffective disorder type: unspecified Asthma J45.909 History of seizure Z87.898 Severe protein-calorie malnutrition E43 Weight loss R63.4 Tobacco dependence F17.200 Chest pain R07.9 DVT prophylaxis Z29.9 (1) Schizoaffective disorder Schizoaffective disorder type: unspecified Qualified Code(s): F25.9 - Schizoaffective disorder, unspecified
--- NOTE | 2021-09-17 02:34 | Communication Note ---
Date of Service: September 17, 2021 Asked overnight to review patient's need for one-to-one given psychiatric evaluation today. I personally reviewed the psychiatric consult and recommendat ions for today, which state that patient's mood has improved, and that he no longer meets 302 criteria -- adds: "from a psychiatric standpoint, he is now stable and appropriate for discharge to residential substance use treatment". It is further added by the psychiatrist that the 1-on-1 can be discontinued. I spoke with patient's RN who said he has not reflected, said, or attempted acting on any [id number] behavior. Given these impressions, I have changed patient's 1-on-1 order from continuous to as needed. Can be reinstalled by RN as needed, if warranted.
[2021-09-17 08:02] LABS: Amphetamine Urine, Confirm 350 ng/mL (<250); Marijuana Quant, GCMS Urine 587 ng/mL (<5); Methamphetamine, Ur Confirm 843 ng/mL (<250)
[2021-09-17] MEDS: NICOTINE 21 MG/24 HR TDSY TD SCH (08:57)
[2021-09-17] MEDS: ENOXAPARIN INJ 40 MG/0.4 ML SYR SQ SCH (08:57)
[2021-09-17] MEDS: THIAMINE HCL 100 MG TAB PO SCH ×2 (08:58→20:48)
[2021-09-17] MEDS: NAPROXEN 250 MG TAB PO SCH ×2 (08:58→20:48)
[2021-09-17] MEDS: FOLIC ACID 1 MG TAB PO SCH (08:58)
[2021-09-17] MEDS: risperiDONE 0.5 MG TABLET PO SCH ×2 (08:59→09:05)
[2021-09-17] MEDS: guaiFENesin 600 MG TABCR PO SCH ×2 (08:59→20:48)
[2021-09-17] MEDS: CEROVITE ADV FORMULA TAB PO SCH (08:59)
[2021-09-17] MEDS: SIMETHICONE 40 MG/0.6 ML 30ML PO SCH ×2 (09:00→21:33)
[2021-09-17] MEDS: BUPRENORPHINE/NALOXONE 8/2 MG TAB SL SCH ×2 (09:16→20:48)
--- NOTE | 2021-09-17 09:53 | Psychiatric Progress Note ---
Date of Service September 17, 2021 Impression / Recommendations Impression This is a 26 yo with a history of schizoaffective disorder, polysubstance use admitted medically. Diagnostically consistent with unspecified depression-likely combination of MDD and methamphetamine and opioid withdrawal as well as unspecified psychosis-likely combination of schizoaffective disorder with recent medication non-adherence as well as substance-induced from methamphetamine with visual hallucinations and methamphetamine and opioid use disorder. At this point acute risk of harm to self is low given no active SI since admission and no command AH and improvement in mood and psychosis with medicatio n management and avoidance of substance use and his desire to continue with suboxone, participate in outpatient psychiatric and MAT care and attend residential substance use treatment once he has recovered from COVID-19 infection. Chronic risk remains high given recent attempts while using substances, history of command AH, and history of chronic intermittent SI, hx polysubstance use. The most significant modifiable risk factor to reduce his acute and chronic risk will be adherence with medications and avoidance of substance use. Encouragingly he is motivated to continue with suboxone, engage with outpatient providers and to attend residential substance use treatment. This is felt to be the most significant modifiable risk factor for acute and chronic risk at this point. He is not appropriate for inpatient psychiatric treatment at this time due to COVID+ status nor does he desire inpatient treatment nor is he felt to meet 302 criteria at this time as his active SI has resolved and no further command auditory hallucinations nor evidence of acute psychosis nor inability to meet self-care needs. 09/17/21: Remains stable with no current major mood symptoms, consistent denial of active SI and no command auditory hallucinations nor symptoms of acute psychosis. He may have experienced some EPS side effects from risperidone and thus then refused his dose last night and this morning. He consents to one time dose of cogentin just to ensure no further lingering symptoms though he denies any EPS or movement side effects since last night. Will switch him back to seroquel which he took previously (up until Jun 2021 at varying doses-most recently 600mg HS) and has one of the lowest potentials for EPS side effects. He consents to this switch and reviewed risks, benefits, alternatives including metabolic and movement side effects. Since he has an outpatient care appointment via telemedicine scheduled for tomorrow (pending likely medical stabilization and discharge today) he can follow-up with his new provider regarding need for any further seroquel titration or should new side effects develop. Risk of relapse is certainly lower if he goes straight to residential treatment but unclear if this will be an option depending on how long he will require for medical stabilization and how long he will need to wait regarding COVID+ status before he can start at a residential treatment facility. A referral was made a intake appointment scheduled for tomorrow via telemedicine with [facility] for both psychiatric and MAT treatment which we discussed with him and he's pleased about. He feels comfortable with this plan should he be medically discharged today and that once he is no longer symptomatic from COVID he can then work with [place] providers to pursue residential treatment. He knows and feels comfortable rescheduling this appointment (contact information provided) should he remain in the hospital past tomorrow. He also has the ability to follow up with his provider in [place] should he chose to do so for psychiatric medication management and MAT suboxone. (1) Schizoaffective disorder: (2) Methamphetamine use disorder, severe: (3) Opioid use disorder, moderate, dependence: (4) Suicidal ideation: (5) Psychosis: (6) Depression: 09/17/21: -Safe for discharge from psychiatric perspective -He is no longer willing to take risperidone; will order one time dose of cogentin -seroquel 50mg qAM & 300mg qHS -Has follow-up psychiatric care and MAT care intake at [facility] tomorrow, he was provided with their phone number so they can verify his zoom is working prior to the appointment -Safety planning reviewed including no access to lethal means, reviewed crisis and emergency resources, outpatient supports, recommendation to avoid substance use and coping skills he can utilize (meditation). 09/16/21: -Discontinue 1-on-1 -May leave AMA, no longer meets 302 criteria -Continue risperidone, should be given script on discharge 09/15/21: -Continue 1-on-1 for safety -Patient may not leave AMA, would meet 302 criteria -Continue risperidone -[facility] faxed to his suboxone/psychiatric provider in [place], awaiting records of prior to admission medication dosages and suboxone scripts 09/14/21: -Continue 1-on-1 for safety -Patient may not leave AMA without psych clearance, would meet 302 critera if he asks to leave due to high risk of harm to self -Psychiatric liason will provide resources on local mental health services and substance use services and will refer to residential tx vs dual diagnosis once psychiatrically and medically stable -Start risperidone 0.5 mg qAM & 1.5 mg qhs -Fasting labs in AM (lipid panel and glucose) -Monitor withdrawal using COWS (Clinical Opiate Withdrawal Scale). Clonidine day 1-4: 0.1 mg q6h prn up to 1.2 mg/day (hold for SBP<100), day 5 complete and reduce dose by 0.2 mg per day until discontinued OR can use clonidine patch 0.2 mg per day. Symptomatic treatment: dicyclomine 20mg q6h prn abdominal cramps, loperamide 2mg q6h prn diarrhea, ibuprofen 600 mg q6h prn pain, hydroxyzine 50mg q6h prn anxiety, mirtazapine 15mg qhs prn for insomnia Risk Factors Assessment Male: Yes : Yes Do You Have Access To A Gun?: No Mental Health Diagnoses: Yes Substance Use Disorders: Yes Previous Attempt: Yes Previous Attempt; Didn't Tell Anyone: Yes Hopelessness: No Smoker: Yes Protective Factors Assessment Employed: No Stable Relationships: Yes Supportive Family: Yes Good Rapport with Provider: Yes Interval History Identifying Information 26 yo man with history of schizoaffective disorder, polysubstance use disorder (methamphetamine, cannabis, opioid) admitted medically for COVID, weight loss, and command AH with SI and plan. Chief Complaint "I'm ok". Review of Systems Notes see subjective Telehealth Telehealth Options: Telephone only For the duration of the visit, provider was performing the assessment from: The same facility as the patient After establishing a telemedicine visit, patient was: Patient was verified with two unique identifiers, Patient/authorized rep acknowledged consent and understanding and Gave permission to continue telehealth session Subjective Subjective Patient was seen & assessed and interval progress reviewed with treatment team nursing and social work. He states his mood is "ok". Sleep remains somewhat difficult because he slept most of the day so his sleep scheduled was shifted. His appetite is "ok". Physically he states he still has some chest pain. Denies SI. Denies AH "they're not there". He states he refused the risperidone last night and this morning because last night he had some muscle twitching in his face. This has since resolved and he denies any other muscle symptoms, EPS side effects. He would prefer to go back on the seroquel. We discussed how even with him refusing the risperidone last night and this morning he hasn't heard any voices and what he makes of this. He feels that meditating has been helping and not using substances "that's probably a big part of it maybe". He feels comfortable with plan for telemedicine follow-up for psychiatry and MAT and plans to attend residential treatment once he has recovered from COVID. Physical Exam Psychiatric Orientation: alert and oriented x 3 Speech: normal rate/rhythm/volume of speech Mood: no depressed mood and no anxious mood Thought Process: linear/logical thought process Thought Content: reality based without delusions Suicidal Thoughts: denies suicidal thoughts Homicidal Thoughts: denies homicidal thoughts Hallucinations: no auditory hallucinations and no visual hallucinations Insight: + fair insight Judgement: + fair judgement Vital Signs (Past 24 Hours) Last Vital Signs Temp 36.8 C 09/17/21 07:22 Pulse 63 09/17/21 07:22 Resp 16 09/17/21 07:22 BP 126/72 09/17/21 07:22 Pulse Ox 97 09/17/21 07:22 Results & Data ([facility]) Laboratory Results Laboratory Results - last 24 hr 09/13/21 09/16/21 14:58 14:10 Troponin I < 0.03 U Amphetamines Confirm 350 H U Methamphetamin Confrm 843 H U Marijuana THC Carboxy 587 H Drug Screen Comment SEE NOTE Current Inpatient Medications Current Inpatient Medications: Current Inpatient Medications Acetaminophen (Acetaminophen 325 Mg Tab) 650 mg PO Q4H PRN PRN Reason: Pain or Fever Stop: 10/13/21 18:23 Last Admin: 09/14/21 08:37 Dose: 650 mg Documented by: Albuterol (Albuterol Hfa 8 Gm Inhaler) 2 puffs INH Q4H PRN PRN Reason: cough/wheeze/dyspnea Stop: 10/13/21 18:23 Buprenorphine/Naloxone (Buprenorphine/Naloxone 8/2 Mg Tab) 1 tab SL BID [facility] Stop: 10/14/21 16:14 Last Admin: 09/17/21 09:16 Dose: 1 tab Documented by: Enoxaparin Sodium (Enoxaparin Inj 40 Mg/0.4 Ml Syr) 40 mg SQ Q24H [facility] Stop: 10/14/21 08:59 Last Admin: 09/17/21 08:57 Dose: 40 mg Documented by: Folic Acid (Folic Acid 1 Mg Tab) 1 mg PO QAM [facility] Stop: 10/13/21 18:23 Last Admin: 09/17/21 08:58 Dose: 1 mg Documented by: Guaifenesin (Guaifenesin 600 Mg Tabcr) 1,200 mg PO Q12 [facility] Stop: 10/13/21 20:59 Last Admin: 09/17/21 08:59 Dose: 1,200 mg Documented by: Miscellaneous (Remove Nicoderm Patch) 1 ea N/A DAILY@[id number] [facility] Stop: 10/14/21 08:58 Last Admin: 09/17/21 08:57 Dose: Not Given Documented by: Multivitamins/Minerals (Cerovite Adv Formula Tab) 1 tab PO QAM [facility] Stop: 10/14/21 08:59 Last Admin: 09/17/21 08:59 Dose: 1 tab Documented by: Naproxen (Naproxen 250 Mg Tab) 250 mg PO BID [facility] Stop: 10/15/21 20:59 Last Admin: 09/17/21 08:58 Dose: 250 mg Documented by: Nicotine (Nicotine 21 Mg/24 Hr Tdsy) 21 mg TD QAM [facility] Stop: 10/13/21 18:23 Last Admin: 09/17/21 08:57 Dose: Not Given Documented by: Olanzapine (Olanzapine 10 Mg Tab) 10 mg PO HS PRN PRN Reason: agitation/aggression/severe ps Stop: 10/14/21 20:59 Ondansetron HCl (Ondansetron Inj 2 Mg/Ml 2 Ml Vial) 4 mg IV Q6H PRN PRN Reason: Nausea Stop: 10/13/21 18:23 Last Admin: 09/14/21 07:49 Dose: 4 mg Documented by: Risperidone (Risperidone 0.5 Mg Tablet) 0.5 mg PO QAM [facility] Stop: 10/14/21 12:59 Last Admin: 09/17/21 09:05 Dose: Not Given Documented by: Risperidone (Risperidone 0.5 Mg Tablet) 1.5 mg PO HS [facility] Stop: 10/14/21 20:59 Last Admin: 09/16/21 20:38 Dose: Not Given Documented by: Simethicone (Simethicone 40 Mg/0.6 Ml 30ml) 80 mg PO BID [facility] Stop: 10/15/21 20:59 Last Admin: 09/17/21 09:00 Dose: 80 mg Documented by: Thiamine HCl (Thiamine Hcl 100 Mg Tab) 200 mg PO BID [facility] Stop: 10/13/21 20:59 Last Admin: 09/17/21 08:58 Dose: 200 mg Documented by: (1) Schizoaffective disorder Schizoaffective disorder type: unspecified Qualified Code(s): F25.9 - Schizoaffective disorder, unspecified
[2021-09-17] MEDS ORDERED: BENZTROPINE MESYLATE 1 MG TAB PO ONE (10:30)
[2021-09-17] MEDS: QUEtiapine FUMARATE 25 MG TABLET PO SCH (11:16)
[2021-09-17] MEDS ORDERED: QUEtiapine FUMARATE 300 MG TABLET PO SCH (21:00)
--- NOTE | 2021-09-17 22:17 | Hospitalist Progress Note ---
Date of Service September 17, 2021 Assessment & Plan (1) COVID-19 virus infection: Plan: He is less than 7 days into his illness. Fortunately he has no evidence of pulmonary infection radiographically. He has no indication for steroids or Remdesivir. CONCERN OVER PERICARDITIS: inflammatory markers negative Troponin noted to be negative. felicia place on NSAID. Pain improved on 09/16 Still comfortable on room air IV fluids, supportive care, cough medications, albuterol prn, etc. will continue to monitor. (2) Psychosis: Plan: Patient with auditory and visual hallucinations. He has a known history of schizoaffective disorder but he is not on chronic antipsychotic medication. He recently moved from [place] to [place] in the last [address] on one-to-one observation. Psychiatry consult. Olanzapine 10mg po prn for agitation/aggressive behavior/severe psychosis. Defer additional meds to psychiatry. appreciate input from psych, unable to sign out AMA. awaiting discharge as patient needs to be on suboxone and needs to get established with local provider. case management working on this. has zoom meeting scheduled for AM. (3) Suicidal ideation: Plan: Place on one-to-one observation/suicide precautions. Psychiatry consult. (4) Polysubstance abuse: Plan: Meth, tobacco, THC, etc. Nicoderm patch. social work consult to assist with substance abuse treatment options for after his medical discharge. (5) Schizoaffective disorder: Plan: patient reports he was diagnosed with such in the past. see above. (6) Asthma: Plan: albuterol prn. no exacerbation at this time, but low threshold for steroids if needed. (7) History of seizure: Plan: noted. not on chronic anti-epileptic medications. (8) Severe protein-calorie malnutrition: Plan: patient reports significant weight loss (50 pounds?) over the last few months. he looks malnourished and generally unwell on physical exam. check TSH in am. check B12, etc. weight loss 2nd to drug abuse? lack of finances to purchase healthy foods? other occult process? add MVI. add thiamine 200mg BID. add folate. (9) Weight loss: Plan: as in #8 above (10) Tobacco dependence: Plan: nicoderm patch 21mg/day added suboxone. (11) Chest pain: Plan: could be 2nd to bronchoconstriction from his asthma/COVID-19 infection. could be pericardial in nature given EKG findings. no evidence of pneumonia on cxr or CT chest. troponin is negative. check sed rate and crp. consider empiric NSAIDs. Currently pain free multiple trops ordered negative. will place on famotidie. (12) DVT prophylaxis: Plan: lovenox once daily Admission and Anticipated Discharge Date Admission Date: September 13, 2021 Subjective Patient reports feeling drowsy from his medications. He had an epsidoe of chest pain which is more epigastric, sharp, lasted for an hour. Currently pain free. Review of Systems Review of Systems: All systems reviewed & are unremarkable except as noted in HPI & below Physical Exam Physical Exam: Gen - NAD eyes - pupils appear symmetric HENT - MM dry; poor dentition neck - no lymph nodes, no JVD heart - RRR, s1 s2, no murmur chest - no reproducible chest wall pain to palpation lungs - no adventitious sounds, no increased work of breathing abd - soft, NT, ND, BS+, no HSM ext - no edema, pulses 2+ b/l skin - scattered rash on upper back, distal legs; erythematous papules neuro - strength 5/5 x 4 exts Results & Data Results & Data ([facility]) Vital Signs (Past 12 Hours) Vital Signs Temp Pulse Pulse Resp BP BP Pulse Ox 09/17/21 19:28 36.4 C L 79 16 145/69 H 95 09/17/21 15:00 78 09/17/21 14:58 36.8 C 83 18 126/69 94 PG Care Time/CCT Total # of Minutes Spent Total Time Spent with Patient: Total time spent is greater than 50% in coordination of care (as documented) at patient's floor/unit and/or counseling patient: Coding Level of Care Code 00626 Subseq Hosp Care Lvl 2 Diagnoses COVID-19 virus infection U07.1 Psychosis F29 Suicidal ideation R45.851 Polysubstance abuse F19.10 Schizoaffective disorder F25.9 Schizoaffective disorder type: unspecified Asthma J45.909 History of seizure Z87.898 Severe protein-calorie malnutrition E43 Weight loss R63.4 Tobacco dependence F17.200 Chest pain R07.9 DVT prophylaxis Z29.9 Time Spent (min) 25 (1) Schizoaffective disorder Schizoaffective disorder type: unspecified Qualified Code(s): F25.9 - Schizoaffective disorder, unspecified
--- NOTE | 2021-09-17 23:39 | Electrocardiogram Report ---
Test Reason : Blood Pressure : / mmHG Vent. Rate : 070 BPM Atrial Rate : 070 BPM P-R Int : 174 ms QRS Dur : 088 ms QT Int : 376 ms P-R-T Axes : 036 062 062 degrees QTc Int : 406 ms Normal sinus rhythm Normal ECG When compared with ECG of 15-SEP-2021 13:44, No significant change was found Confirmed by Gómez Bledsoe ([id number]) on 09/17/2021 11:38:50 PM Referred By: REFERRED SELF Confirmed By:Gómez Bledsoe
[2021-09-18] MEDS: NICOTINE 21 MG/24 HR TDSY TD SCH (08:03)
[2021-09-18] MEDS: guaiFENesin 600 MG TABCR PO SCH (08:13)
[2021-09-18] MEDS: NAPROXEN 250 MG TAB PO SCH (08:13)
[2021-09-18] MEDS: CEROVITE ADV FORMULA TAB PO SCH (08:14)
[2021-09-18] MEDS: THIAMINE HCL 100 MG TAB PO SCH (08:14)
[2021-09-18] MEDS: ENOXAPARIN INJ 40 MG/0.4 ML SYR SQ SCH (08:14)
[2021-09-18] MEDS: FOLIC ACID 1 MG TAB PO SCH (08:14)
[2021-09-18] MEDS: QUEtiapine FUMARATE 25 MG TABLET PO SCH (08:15)
[2021-09-18] MEDS: SIMETHICONE 40 MG/0.6 ML 30ML PO SCH (08:15)
[2021-09-18] MEDS: BUPRENORPHINE/NALOXONE 8/2 MG TAB SL SCH (09:20)
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
== END 2021-09-18 15:53 | disposition home or self-care (01) | DRG 177 ==
LOC: ED 13:05 → SUATTDRO 16:55 → 2W 16:55